=== PATIENT | female | born 1995 | race Two or more races ===

== ENCOUNTER 2016-09-08 18:11 | Emergency (ER) | payer SELFPAY ==
--- NOTE | 2016-09-08 18:40 | ER Document Report ---
ED Medical Screen (RME) - General Chief Complaint: Abdominal Pain Stated Complaint: STOMACH PAIN,VAGINAL IRRITATION Mode of Arrival: Ambulatory Information source: Patient Notes: Patient presents to the emergency department complaining of right upper quadrant abdominal pain for the past couple days. No complaints of vomiting and diarrhea. Patient speaks no Andorran. Translation done via chino on my phone for translation. I greeted and performed a rapid initial assessment of this patient. Comprehensive ED assessment and evaluation of the patient, analysis of test results and completion of the medical decision making process will be conducted by additional ED providers. TRAVEL OUTSIDE OF THE [place] IN LAST 30 DAYS: No - Related Data Allergies/Adverse Reactions: No Known Allergies Allergy (Verified 06/29/16 15:30) Past Medical History - Social History Chew tobacco use (# tins/day): No Frequency of alcohol use: None Drug Abuse: None Renal/ Medical History: Denies: Hx Peritoneal Dialysis - Immunizations Hx Diphtheria, Pertussis, Tetanus Vaccination: Yes Physical Exam - Vital signs Vitals: Temp Pulse Resp BP Pulse Ox 98.1 F 82 16 109/73 99 09/08/16 18:30 09/08/16 18:30 09/08/16 18:30 09/08/16 18:30 09/08/16 18:30 Course - Vital Signs Vital signs: Temp Pulse Resp BP Pulse Ox 98.1 F 82 16 109/73 99 09/08/16 18:30 09/08/16 18:30 09/08/16 18:30 09/08/16 18:30 09/08/16 18:30
[2016-09-08 19:38] LABS: ABSOLUTE EOSINOPHILS # (AUTO) 0.4 10^3/uL (0.0-0.6); ABSOLUTE LYMPHOCYTES (AUTO) 3.6 10^3/uL (0.5-4.7); ABSOLUTE NEUT (AUTO) 6.8 10^3/uL (1.7-8.2); BASOPHILS % (AUTO) 0.3 % (0-2); EOSINOPHILS % (AUTO) 3.3 % (0-6); HEMATOCRIT 39.3 % (36.0-47.0); HEMOGLOBIN 12.2 g/dL (12.0-15.5); HGB HCT DIFFERENCE -2.7; LYMPHOCYTES % (AUTO) 30.3 % (13-45); MEAN CORPUSCULAR VOLUME 87 fl (80-97); MONOCYTES % (AUTO) 8.2 % (3-13); RED BLOOD COUNT 4.52 10^6/uL (3.72-5.28); RED CELL DISTRIBUTION WIDTH 16.8 % (11.5-14.0); SEGMENTED NEUTROPHILS % (AUTO) 57.9 % (42-78); WHITE BLOOD COUNT 11.8 10^3/uL (4.0-10.5)
[2016-09-08 19:44] LABS: APPEARANCE,URINE SLIGHTLY-CLOUDY; BILIRUBIN,URINE NEGATIVE (NEGATIVE); GLUCOSE, URINE NEGATIVE (NEGATIVE); KETONES,URINE NEGATIVE (NEGATIVE); LEUKOCYTE ESTERASE,URINE LARGE (NEGATIVE); NITRITE,URINE NEGATIVE (NEGATIVE); PROTEIN,URINE NEGATIVE (NEGATIVE); URINE SPECIFIC GRAVITY 1.026; UROBILINOGEN,URINE NEGATIVE mg/dL (<2.0)
[2016-09-08 20:00] LABS: ALANINE AMINOTRANSFERASE 21 U/L (9-52); ALBUMIN 3.5 g/dL (3.5-5.0); ALKALINE PHOSPHATASE 115 U/L (38-126); ANION GAP 12 (5-19); ASPARTATE AMINO TRANSFERASE 18 U/L (14-36); BILIRUBIN,TOTAL 0.2 mg/dL (0.2-1.3); BLOOD UREA NITROGEN 13 mg/dL (7-20); CARBON DIOXIDE 24 mmol/L (22-30); CHLORIDE 107 mmol/L (98-107); CREATININE RESULT 0.71 mg/dL (0.52-1.25); GLUCOSE 82 mg/dL (75-110); LIPASE 73.6 U/L (23-300); POTASSIUM 4.1 mmol/L (3.6-5.0); SODIUM 143.3 mmol/L (137-145); TOTAL PROTEIN 6.6 g/dL (6.3-8.2)
--- NOTE | 2016-09-08 21:42 | ER Document Report ---
ED GI/ - General Chief Complaint: Abdominal Pain Stated Complaint: STOMACH PAIN,VAGINAL IRRITATION Mode of Arrival: Ambulatory Information source: Patient - VIA [employer] TRAVEL OUTSIDE OF THE [place] IN LAST 30 DAYS: No - HPI Patient complains to provider of: Abdominal pain, Vaginal discharge, Vaginal pain Onset: Other - 2 DAYS AGO Timing/Duration: Gradual, Intermittent Quality of pain: Other - "PAIN" Severity at maximum: Moderate Severity in ED: Almost gone Context: Other - RECENT Rx WITH METRONIDAZOLE. denies: Bad food, Lifting, Out of the country travel, , Recent trauma Location: RUQ, Vaginal Vaginal bleeding (Compared to normal period): None Menstrual period history: denies: Sexual history: Active Associated symptoms: Dysuria, Vaginal discharge. denies: Constipation, Diarrhea , Fever, Nausea, Urinary frequency, Urinary urgency, Vomiting Exacerbated by: Denies Relieved by: Denies Similar symptoms previously: Yes Recently seen / treated by doctor: Mian - KRISTIAN @ [facility] Notes: 09/09/16 00:13 Patient has prior history of gallstones, states present abdominal pain is similar. - Related Data Allergies/Adverse Reactions: No Known Allergies Allergy (Verified 06/29/16 15:30) Past Medical History - General Information source: Patient - Social History Smoking Status: Unknown if Ever Smoked Chew tobacco use (# tins/day): No Frequency of alcohol use: None Drug Abuse: None Lives with: Spouse/Significant other Family History: Reviewed & Not Pertinent Patient has suicidal ideation: No Patient has homicidal ideation: No - Past Medical History Cardiac Medical History: Reports: None Pulmonary Medical History: Reports: None EENT Medical History: Reports: None Neurological Medical History: Reports: None Endocrine Medical History: Reports: None. Denies: Hx Diabetes Mellitus Type 1, Hx Diabetes Mellitus Type 2 Renal/ Medical History: Reports: None Malignancy Medical History: Reports: None GI Medical History: Reports: Other - CHOLELITHIASIS Psychiatric Medical History: Reports: None Surgical Hx: Negative - Immunizations Hx Diphtheria, Pertussis, Tetanus Vaccination: Yes Review of Systems - Review of Systems Constitutional: No symptoms reported EENT: No symptoms reported Cardiovascular: No symptoms reported Respiratory: No symptoms reported Gastrointestinal: See HPI Genitourinary: See HPI Female Genitourinary: See HPI, Vaginal discharge. denies: Musculoskeletal: No symptoms reported Skin: No symptoms reported Neurological/Psychological: No symptoms reported Physical Exam - Vital signs Vitals: Temp Pulse Resp BP Pulse Ox 98.1 F 82 16 109/73 99 09/08/16 18:30 09/08/16 18:30 09/08/16 18:30 09/08/16 18:30 09/08/16 18:30 Interpretation: Normal. No: Tachycardic, Tachypneic, Febrile - General General appearance: Appears well, Alert In distress: None - HEENT Head: Normocephalic Eyes: Normal Conjunctiva: Normal Ears: Normal Nasal: Normal Mouth/Lips: Normal Mucous membranes: Normal - Respiratory Respiratory status: No respiratory distress - Cardiovascular Rhythm: Regular - Abdominal Inspection: Normal Distension: No distension Bowel sounds: Normal Tenderness: Tender - SLIGHT, RUQ Organomegaly: No organomegaly - Genitourinary External exam: Normal Speculum exam: Vaginal discharge - WHITE Vaginal bleeding: None Bimanuel exam: Normal. No: Cervical motion tender - Extremities General upper extremity: Normal inspection General lower extremity: Normal inspection - Neurological Neuro grossly intact: Yes Cognition: Normal Orientation: AAOx4 - Psychological Associated symptoms: Normal affect, Normal mood - Skin Skin Temperature: Warm Skin Moisture: Dry Skin Color: Normal Skin Turgor: Elastic Course - Vital Signs Vital signs: Temp Pulse Resp BP Pulse Ox 98.1 F 82 16 109/73 99 09/08/16 18:30 09/08/16 18:30 09/08/16 18:30 09/08/16 18:30 09/08/16 18:30 - Laboratory Result Diagrams: 09/08/16 18:50 09/08/16 18:50 Laboratory results interpreted by me: 09/08/16 09/08/16 18:50 18:50 WBC 11.8 H MCHC 31.0 L RDW 16.8 H Ur Leukocyte Esterase LARGE H Discharge - Discharge Clinical Impression: Candidal vaginitis, H/O cholelithiasis Condition: Stable Disposition: HOME, SELF-CARE Instructions: Abdominal Pain ([facility]), Vaginal Yeast Infection ([facility]), Gallbladder Disease ([facility]) Additional Instructions: BLAND DIET, AVOID GREASY OR SPICY FOODS. TAKE TYLENOL OR IBUPROFEN FOR PAIN, OR NORCO FOR MORE SEVERE PAIN. TAKE DIFLUCAN TOMORROW DIRECTED. FOLLOW UP WITH YOUR PRIMARY CARE PROVIDER, YOU MAY NEED REFERRAL TO GENERAL SURGERY FOR POSSIBLE GALLBLADDER REMOVAL. RETURN TO E.R. IF ANY NEW OR WORSENING SYMPTOMS. Prescriptions: Hydrocodone/Acetaminophen [[place] 5-325 mg Tablet] 1 tab PO Q4HP PRN #14 tablet PRN Reason: For Pain Fluconazole [Diflucan] 150 mg PO ONCE PRN #1 tablet PRN Reason:
[2016-09-09] MEDS ORDERED: HYDROCODONE/ACETAMINOPHEN 5-325 MG 6 TAB/DSPK PO PRN (00:40)
[2016-09-09 01:00] VITALS: BP 114/68
[2016-09-09 01:51] LABS: CHLAM PCR NOT DETECTED (NOT DETECT)
== END 2016-09-09 01:01 | disposition home or self-care (01) ==
LOC: ER 18:11
DX: B37.3 Candidiasis of vulva and vagina (principal); K80.80 Other cholelithiasis without obstruction; R10.2 Pelvic and perineal pain; R10.11 Right upper quadrant pain
CPT/HCPCS: 36415; 80053; 81001; 83690; 84703; 85025; 87086; 87210; 87491; 87591; 99284

== ENCOUNTER 2016-10-12 16:23 | Emergency (ER) | payer SELFPAY ==
--- NOTE | 2016-10-12 16:46 | ER Document Report ---
ED Medical Screen (RME) - General Chief Complaint: Upper Abdominal Pain Stated Complaint: BODY PAIN Notes: patient is a 21 year old female p/w 2 days of RUQ pain with fever, chills, nausea and with diarrhea. has known gall stones I have greeted and performed a rapid initial assessment of this patient. A comprehensive ED assessment and evaluation of the patient, analysis of test results and completion of the medical decision making process will be conducted by additional ED providers. TRAVEL OUTSIDE OF THE [place] IN LAST 30 DAYS: No - Related Data Allergies/Adverse Reactions: No Known Allergies Allergy (Verified 10/12/16 16:37) Past Medical History - Social History Chew tobacco use (# tins/day): No Frequency of alcohol use: None Drug Abuse: None Endocrine Medical History: Denies: Hx Diabetes Mellitus Type 1, Hx Diabetes Mellitus Type 2 Renal/ Medical History: Denies: Hx Peritoneal Dialysis - Immunizations Hx Diphtheria, Pertussis, Tetanus Vaccination: Yes
[2016-10-12] MEDS ORDERED: ONDANSETRON 4 MG TAB.RAPDIS PO ONE (16:47)
[2016-10-12 17:24] LABS: ABSOLUTE LYMPHOCYTES (AUTO) 0.6 10^3/uL (0.5-4.7); ABSOLUTE MONOCYTES (AUTO) 0.9 10^3/uL (0.1-1.4); ABSOLUTE NEUT (AUTO) 4.3 10^3/uL (1.7-8.2); BASOPHILS % (AUTO) 0.3 % (0-2); EOSINOPHILS % (AUTO) 0.6 % (0-6); HEMATOCRIT 40.8 % (36.0-47.0); HEMOGLOBIN 13.5 g/dL (12.0-15.5); HGB HCT DIFFERENCE -0.3; LYMPHOCYTES % (AUTO) 9.6 % (13-45); MEAN CORPUSCULAR HEMOGLOBIN 28.4 pg (27.0-33.4); MEAN CORPUSCULAR VOLUME 86 fl (80-97); MONOCYTES % (AUTO) 16.1 % (3-13); RED BLOOD COUNT 4.74 10^6/uL (3.72-5.28); RED CELL DISTRIBUTION WIDTH 14.6 % (11.5-14.0); SEGMENTED NEUTROPHILS % (AUTO) 73.4 % (42-78); WHITE BLOOD COUNT 5.8 10^3/uL (4.0-10.5)
[2016-10-12 17:39] LABS: APPEARANCE,URINE SLIGHTLY-CLOUDY; BILIRUBIN,URINE NEGATIVE (NEGATIVE); GLUCOSE, URINE NEGATIVE (NEGATIVE); KETONES,URINE NEGATIVE (NEGATIVE); LEUKOCYTE ESTERASE,URINE NEGATIVE (NEGATIVE); NITRITE,URINE NEGATIVE (NEGATIVE); PROTEIN,URINE NEGATIVE (NEGATIVE); UROBILINOGEN,URINE NEGATIVE mg/dL (<2.0)
[2016-10-12 17:43] LABS: ALANINE AMINOTRANSFERASE 272 U/L (9-52); ALBUMIN 3.7 g/dL (3.5-5.0); ALKALINE PHOSPHATASE 177 U/L (38-126); ANION GAP 11 (5-19); ASPARTATE AMINO TRANSFERASE 481 U/L (14-36); BILIRUBIN,TOTAL 0.4 mg/dL (0.2-1.3); BLOOD UREA NITROGEN 14 mg/dL (7-20); CALCIUM 9.6 mg/dL (8.4-10.2); CARBON DIOXIDE 23 mmol/L (22-30); CHLORIDE 106 mmol/L (98-107); CREATININE RESULT 0.63 mg/dL (0.52-1.25); GLUCOSE 75 mg/dL (75-110); LIPASE 65.2 U/L (23-300); POTASSIUM 4.3 mmol/L (3.6-5.0); SODIUM 139.9 mmol/L (137-145); TOTAL PROTEIN 7.4 g/dL (6.3-8.2)
[2016-10-12] MEDS ORDERED: ONDANSETRON HCL INJ/PF 4 MG/2 ML SDV IV ONE (21:53)
[2016-10-12] MEDS ORDERED: NORMAL SALINE 1000 ML 1,000 ML IV PRN (21:53)
[2016-10-12] MEDS ORDERED: KETOROLAC TROMETHAMINE INJ/PF 30 MG/1 ML SDV IV ONE (21:53)
--- NOTE | 2016-10-12 21:55 | ER Document Report ---
ED GI/ - General Chief Complaint: Upper Abdominal Pain Stated Complaint: BODY PAIN Time seen by provider: 21:54 Mode of Arrival: Ambulatory Information source: Patient TRAVEL OUTSIDE OF THE [place] IN LAST 30 DAYS: No - HPI Patient complains to provider of: Abdominal pain, Diarrhea Onset: Yesterday Timing/Duration: Sudden, Gradual Quality of pain: Achy Severity at maximum: Moderate Severity in ED: Moderate Pain Level: 3 Location: RUQ Vaginal bleeding (Compared to normal period): None Associated symptoms: Diarrhea, Nausea Exacerbated by: Denies Relieved by: Denies Similar symptoms previously: Yes Recently seen / treated by doctor: No Notes: 10/12/16 21:54 Patient is a 21-year-old female presenting to the emergency room complaining of diarrhea, nausea, right upper quadrant pain this started yesterday, body aches and headaches as well, no dysuria, no fever, no sick contacts, she reports a history of gallstones in the past - Related Data Allergies/Adverse Reactions: No Known Allergies Allergy (Verified 10/12/16 16:37) Past Medical History - General Information source: Patient - Social History Smoking Status: Never Smoker Chew tobacco use (# tins/day): No Frequency of alcohol use: None Drug Abuse: None Family History: Reviewed & Not Pertinent Patient has suicidal ideation: No Patient has homicidal ideation: No Endocrine Medical History: Denies: Hx Diabetes Mellitus Type 1, Hx Diabetes Mellitus Type 2 Renal/ Medical History: Denies: Hx Peritoneal Dialysis Surgical Hx: Negative - Immunizations Hx Diphtheria, Pertussis, Tetanus Vaccination: Yes Review of Systems - Review of Systems Constitutional: Chills EENT: No symptoms reported Cardiovascular: No symptoms reported Respiratory: No symptoms reported Gastrointestinal: See HPI Genitourinary: No symptoms reported Female Genitourinary: No symptoms reported Musculoskeletal: See HPI Skin: No symptoms reported Hematologic/Lymphatic: No symptoms reported Neurological/Psychological: Headaches -: Yes All other systems reviewed and negative Physical Exam - Vital signs Interpretation: Normal - General General appearance: Appears well, Alert - HEENT Head: Normocephalic, Atraumatic Eyes: Normal Pupils: PERRL - Respiratory Respiratory status: No respiratory distress Chest status: Nontender Breath sounds: Normal Chest palpation: Normal - Cardiovascular Rhythm: Regular Heart sounds: Normal auscultation Murmur: No - Abdominal Inspection: Normal Distension: No distension Bowel sounds: Normal Tenderness: Tender - Right upper quadrant Organomegaly: No organomegaly - Back Back: Normal, Nontender - Extremities General upper extremity: Normal inspection, Nontender, Normal color, Normal ROM , Normal temperature General lower extremity: Normal inspection, Nontender, Normal color, Normal ROM , Normal temperature, Normal weight bearing. No: Lj's sign - Neurological Neuro grossly intact: Yes Cognition: Normal Orientation: AAOx4 [place] Coma Scale Eye Opening: Spontaneous [place] Coma Scale Verbal: Oriented [place] Coma Scale Motor: Obeys Commands [place] Coma Scale Total: 15 Speech: Normal Motor strength normal: LUE, RUE, LLE, RLE Sensory: Normal - Psychological Associated symptoms: Normal affect, Normal mood - Skin Skin Temperature: Warm Skin Moisture: Dry Skin Color: Normal Course - Re-evaluation Re-evalutation: 10/13/16 00:47 Patient resting comfortably, tolerating by mouth intake, reports her headache is still bothering her but improved, lab and imaging findings were discussed with patient at bedside, she was advised to follow-up with her primary care provider in the next 2-3 days or return if symptoms worsen, patient acknowledges understanding and agreement with this plan - Laboratory Result Diagrams: 10/12/16 16:50 10/12/16 16:50 Laboratory results interpreted by me: 10/12/16 10/12/16 10/12/16 16:50 16:50 16:50 RDW 14.6 H Lymphocytes % 9.6 L Monocytes % 16.1 H AST 481 H ALT 272 H Alkaline Phosphatase 177 H Urine Ascorbic Acid 20 H - Diagnostic Test Radiology reviewed: Image reviewed, Reports reviewed Discharge - Discharge Clinical Impression: Viral illness, Elevated liver enzymes Headache Qualifiers: Headache type: unspecified Headache chronicity pattern: acute headache Intractability: not intractable Qualified Code(s): R51 - Headache Condition: Stable Disposition: HOME, SELF-CARE Instructions: Acetaminophen, Viral Syndrome ([facility]), Liver Function Abnormality ( [facility]) Additional Instructions: Drink plenty of fluids. Follow up with your primary care provider in one to 2 days. Return to the emergency room if symptoms worsen or any additional concerns.
[2016-10-13] MEDS ORDERED: ONDANSETRON ODT 4 MG TAB (6 TAB/DSPK) PO PRN (00:47)
[2016-10-13] MEDS ORDERED: HYDROCODONE/ACETAMINOPHEN 5-325 MG 6 TAB/DSPK PO PRN (00:47)
[2016-10-13 01:14] VITALS: BP 117/69
== END 2016-10-13 01:14 | disposition home or self-care (01) ==
LOC: ER 16:23
DX: B34.9 Viral infection, unspecified (principal); R74.8 Abnormal levels of other serum enzymes; R51 Headache; K80.80 Other cholelithiasis without obstruction; R10.11 Right upper quadrant pain; R19.7 Diarrhea, unspecified; R11.0 Nausea; R68.83 Chills (without fever); E11.9 Type 2 diabetes mellitus without complications
CPT/HCPCS: 99284; 96361; 96374; 96375; 36415; 83690; 85025; 81025; 80053; 81001; 80074; 87804; 76705; S0119; J1885; J2405; J7030

== ENCOUNTER 2016-11-11 18:47 | Emergency (ER) | payer SELFPAY ==
--- NOTE | 2016-11-11 19:22 | ER Document Report ---
ED Medical Screen (RME) - General Stated Complaint: URINARY PROBLEM Notes: Patient is a 21 year old female presents emergency Department complaining of urinary symptoms. Patient's primary language is [place]ican. one week, denies hematuria admits to odor, itching and vaginal discharge without odor. pyuria, frequency. has had these symptoms 3 times since she had her baby 4 months. admits to middle back pain. I have greeted and performed a rapid initial assessment of this patient. A comprehensive ED assessment and evaluation of the patient, analysis of test results and completion of the medical decision making process will be conducted by additional ED providers. TRAVEL OUTSIDE OF THE [place] IN LAST 30 DAYS: No - Related Data Allergies/Adverse Reactions: No Known Allergies Allergy (Verified 10/12/16 16:37) Past Medical History Endocrine Medical History: Denies: Hx Diabetes Mellitus Type 1, Hx Diabetes Mellitus Type 2 Renal/ Medical History: Denies: Hx Peritoneal Dialysis - Immunizations Hx Diphtheria, Pertussis, Tetanus Vaccination: Yes Physical Exam - Vital signs Vitals: Temp Pulse Resp BP Pulse Ox 98.8 F 98 16 130/74 H 98 11/11/16 19:01 11/11/16 19:01 11/11/16 19:01 11/11/16 19:01 11/11/16 19:01 Course - Vital Signs Vital signs: Temp Pulse Resp BP Pulse Ox 98.8 F 98 16 130/74 H 98 11/11/16 19:01 11/11/16 19:01 11/11/16 19:01 11/11/16 19:01 11/11/16 19:01
[2016-11-11 20:49] LABS: BILIRUBIN,URINE NEGATIVE (NEGATIVE); GLUCOSE, URINE NEGATIVE (NEGATIVE); KETONES,URINE NEGATIVE (NEGATIVE); LEUKOCYTE ESTERASE,URINE LARGE (NEGATIVE); NITRITE,URINE NEGATIVE (NEGATIVE); PROTEIN,URINE NEGATIVE (NEGATIVE); URINE SPECIFIC GRAVITY 1.029; UROBILINOGEN,URINE NEGATIVE mg/dL (<2.0)
[2016-11-11 20:50] LABS: APPEARANCE,URINE SLIGHTLY-CLOUDY
--- NOTE | 2016-11-11 21:30 | ER Document Report ---
HPI - HPI Patient complains to provider of: vaginal discharge, pain with void Onset: Last week Onset/Duration: Persistent Quality of pain: Burning Severity: Moderate Pain Level: 3 Context: Patient presents to the emergency department with complaints of urinary infection. She reports pain, burn with void for one-week. She also reports vaginal discharge with a bad smell. Patient reports history of UTI. She reports she had a yeast infection afterwards when treated with antibiotics. She denies fever vomiting diarrhea. Patient speaks Nigerien. MARTTI used for interpretation. Pt reports sexually active with one partner. Denies STD, reports she is not worried about that. Associated Symptoms: None Exacerbated by: Denies Relieved by: Denies Similar symptoms previously: Yes Recently seen / treated by doctor: No - CARDIOVASCULAR Cardiovascular: DENIES: Chest pain - REPRODUCTIVE Reproductive: DENIES: : - DERM Skin Color: Normal, [place] Past Medical History - General Information source: Patient Last Menstrual Period: sep 27 - Social History Smoking Status: Never Smoker Chew tobacco use (# tins/day): No Frequency of alcohol use: None Drug Abuse: None Lives with: Family Family History: Reviewed & Not Pertinent Patient has suicidal ideation: No Patient has homicidal ideation: No Endocrine Medical History: Denies: Hx Diabetes Mellitus Type 1, Hx Diabetes Mellitus Type 2 Renal/ Medical History: Reports: Other - uti. Denies: Hx Peritoneal Dialysis Surgical Hx: Negative - Immunizations Hx Diphtheria, Pertussis, Tetanus Vaccination: Yes Vertical Provider Document - CONSTITUTIONAL Agree With Documented VS: Yes Exam Limitations: No Limitations General Appearance: WD/WN, No Apparent Distress - INFECTION CONTROL TRAVEL OUTSIDE OF THE [place] IN LAST 30 DAYS: No - HEENT HEENT: Atraumatic, Normocephalic - NECK Neck: Normal Inspection, Supple - RESPIRATORY Respiratory: Breath Sounds Normal, No Respiratory Distress O2 Sat by Pulse Oximetry: 98 - CARDIOVASCULAR Cardiovascular: Regular Rate - GI/ABDOMEN Gastrointestinal: Abdomen Soft, Abdomen Non-Tender - REPRODUCTIVE Female Genitalia: Normal Inspection - BACK Back: Normal Inspection. negative: CVA Tenderness-Right, CVA Tenderness-Left - MUSCULOSKELETAL/EXTREMETIES Musculoskeletal/Extremeties: DHEERAJ LEVIN - NEURO Level of Consciousness: Awake, Alert, Appropriate Motor/Sensory: No Motor Deficit - DERM Integumentary: Warm, Dry Course - Re-evaluation Re-evalutation: 11/11/16 22:36 UA with positive leukocytes, 59 WBC's trace bacteria. Will be treated for UTI. 11/11/16 23:01 pt updated on UTI, macrobid, diflucan. Patient was instructed to contact the ED if the prescription cost too much. They will take it to [facility]. - Vital Signs Vital signs: Temp Pulse Resp BP Pulse Ox 98.8 F 98 16 130/74 H 98 11/11/16 19:13 11/11/16 19:13 11/11/16 19:13 11/11/16 19:13 11/11/16 19:13 - Laboratory Laboratory results interpreted by me: 11/11/16 20:15 Ur Leukocyte Esterase LARGE H Procedures - Pelvic Exam Pelvic exam Cultures obtained: Yes Wet prep obtained: Yes Herpes culture obtained: No POC sent to lab: No Foreign body removed: No Bimanual exam performed: Yes Witnessed by: glenda MANUEL Discharge - Discharge Clinical Impression: Elevated blood pressure reading UTI (urinary tract infection) Qualifiers: Urinary tract infection type: site unspecified Hematuria presence: without hematuria Qualified Code(s): N39.0 - Urinary tract infection, site not specified Condition: Stable Disposition: HOME, SELF-CARE Instructions: Nitrofurantoin ([facility]), [facility] Department, Urinary Tract Infection ([facility]), Fluconazole ([facility]) Additional Instructions: *You have been evaluated for pain while voiding, UTI, Vaginal discharge, history of yeast infection after antibiotics *Take medication as prescribed *Push fluids *Follow up with the health department in one week for recheck *Plan recheck of your urine *Return to ED for worsening condition, changes, needs Monitor your blood pressure. Your blood pressure was elevated today. This may be because you were anxious, in pain or because you need medication. It is important to follow up with your primary care provider for full evaluation. Prescriptions: Fluconazole [Diflucan] 150 mg PO ONCE PRN #1 tablet PRN Reason: Nitrofurantoin/Nitrofuran Mac [Macrobid 100 mg Capsule] 100 mg PO BID #10 capsule Forms: Elevated Blood Pressure Print Language: Nigerien
[2016-11-11] MEDS ORDERED: SULFAMETHOXAZOLE/TRIMETHOPRIM 800-160 MG TABLET PO ONE (22:44)
[2016-11-11] MEDS ORDERED: NITROFURANTOIN MONOHYD/M-CRYST 100 MG CAPSULE PO ONE (22:54)
[2016-11-11 23:13] VITALS: BP 120/72
[2016-11-12 00:05] LABS: CHLAM PCR NOT DETECTED (NOT DETECT)
== END 2016-11-11 23:14 | disposition home or self-care (01) ==
LOC: ER 18:47
DX: N39.0 Urinary tract infection, site not specified (principal); R03.0 Elevated blood-pressure reading, without diagnosis of hypertension
CPT/HCPCS: 99283; 87086; 87210; 81025; 81001; 87491; 87591; J8499

== ENCOUNTER → 2016-12-18 | Outpatient (CLI) | payer OTHER | LOC: EDBD 13:00 → RAD 13:11 → MERGE 13:11 | DX: K81.9 Cholecystitis, unspecified (principal) | CPT/HCPCS: 78227; A9537; Q9969; J2805 ==

== ENCOUNTER → 2017-01-02 | Outpatient (CLI) | payer OTHER ==
[2017-01-02 11:00] LABS: ALANINE AMINOTRANSFERASE 27 U/L (9-52); ALBUMIN 3.8 g/dL (3.5-5.0); ALKALINE PHOSPHATASE 141 U/L (38-126); ANION GAP 10 (5-19); ASPARTATE AMINO TRANSFERASE 14 U/L (14-36); BILIRUBIN,DIRECT 0.3 mg/dL (0.0-0.4); BILIRUBIN,TOTAL 0.4 mg/dL (0.2-1.3); BLOOD UREA NITROGEN 14 mg/dL (7-20); CALCIUM 9.3 mg/dL (8.4-10.2); CARBON DIOXIDE 22 mmol/L (22-30); CHLORIDE 109 mmol/L (98-107); CREATININE RESULT 0.68 mg/dL (0.52-1.25); GLUCOSE 104 mg/dL (75-110); LIPASE 106.9 U/L (23-300); POTASSIUM 4.6 mmol/L (3.6-5.0); SODIUM 140.6 mmol/L (137-145); TOTAL PROTEIN 7.2 g/dL (6.3-8.2)
== END ==
LOC: CCC 09:50
DX: K81.9 Cholecystitis, unspecified (principal); R79.89 Other specified abnormal findings of blood chemistry
CPT/HCPCS: 36415; 80053; 83036; 83690

== ENCOUNTER 2017-03-25 00:16 | Emergency (ER) | payer SELFPAY ==
[2017-03-25] MEDS ORDERED: LIDOCAINE 2% VISCOUS SOLN 20 ML UDCUP PO ONE (01:21)
[2017-03-25] MEDS ORDERED: CLINDAMYCIN HCL 150 MG CAPSULE PO ONE (01:21)
--- NOTE | 2017-03-25 01:28 | ER Document Report ---
ED Oral Problem - General Chief Complaint: Toothache Stated Complaint: MOUTH DISCOMFORT/FOOT PAIN Time Seen by Provider: 03/25/17 01:21 Mode of Arrival: Ambulatory Information source: Patient Notes: 21-year-old female presented to ED for right lower jaw pain as well as right great toe pain. She states she cut her toenails long. She also has pain in her right lower wisdom tooth. She states the pain in her mouth is been for several days and while is the toe pain. TRAVEL OUTSIDE OF THE [place] IN LAST 30 DAYS: No - HPI Patient complains to provider of: Toothache, Other - Right toe pain Onset: Other - Several days Onset: Gradual Quality of pain: Sharp, Throbbing Severity: Moderate Pain Level: 4 Associated symptoms: Jaw pain, Toothache, Other - right great toe pain from where she cut her nail to short Worsened by: Cold Relieved by: Nothing Similar symptoms previously: Yes Recently seen / treated by doctor/dentist: No - Related Data Allergies/Adverse Reactions: No Known Allergies Allergy (Verified 11/11/16 19:22) Past Medical History - General Information source: Patient - Social History Smoking Status: Never Smoker Cigarette use (# per day): No Chew tobacco use (# tins/day): No Smoking Education Provided: No Frequency of alcohol use: None Drug Abuse: None Lives with: Family Family History: DM, Hypertension, Malignancy Patient has suicidal ideation: No Patient has homicidal ideation: No - Past Medical History Cardiac Medical History: Reports: None Pulmonary Medical History: Reports: None EENT Medical History: Reports: None Neurological Medical History: Reports: None Endocrine Medical History: Reports: None Renal/ Medical History: Reports: None Malignancy Medical History: Reports: None GI Medical History: Reports: None Musculoskeltal Medical History: Reports None Skin Medical History: Reports None Psychiatric Medical History: Reports: None Traumatic Medical History: Reports: None Infectious Medical History: Reports: None Surgical Hx: Negative Past Surgical History: Reports: None - Immunizations Immunizations up to date: Yes Hx Diphtheria, Pertussis, Tetanus Vaccination: Yes Review of Systems - Review of Systems Constitutional: No symptoms reported EENT: Dental problem - right wisdom tooth appears impacted with swelling and redness to the gums Cardiovascular: No symptoms reported Respiratory: No symptoms reported Gastrointestinal: No symptoms reported Genitourinary: No symptoms reported Female Genitourinary: No symptoms reported Musculoskeletal: No symptoms reported Skin: Other - swelling around the right great toe nail no redness or drainage Hematologic/Lymphatic: No symptoms reported Neurological/Psychological: No symptoms reported -: Yes All other systems reviewed and negative Physical Exam - Vital signs Vitals: Temp Pulse Resp BP Pulse Ox 98.2 F 87 18 142/71 H 99 03/25/17 00:18 03/25/17 00:18 03/25/17 00:18 03/25/17 00:18 03/25/17 00:18 Interpretation: Normal - General General appearance: Appears well, Alert - HEENT Head: Normocephalic, Atraumatic Eyes: Normal Pupils: PERRL Ears: Normal External canal: Normal Tympanic membrane: Normal Sinus: Normal Nasal: Normal Mouth/Lips: Normal Mucous membranes: Normal Teeth diagram: 1 - lower wisdom tooth tender partially through the gum with swellng and redness to the gum Pharynx: Normal Neck: Normal - Respiratory Respiratory status: No respiratory distress Chest status: Nontender Breath sounds: Normal Chest palpation: Normal - Cardiovascular Rhythm: Regular Heart sounds: Normal auscultation Murmur: No - Abdominal Inspection: Normal Distension: No distension Bowel sounds: Normal Tenderness: Nontender Organomegaly: No organomegaly - Back Back: Normal, Nontender - Extremities General upper extremity: Normal inspection, Nontender, Normal color, Normal ROM , Normal temperature General lower extremity: Normal inspection, Nontender, Normal color, Normal ROM , Normal temperature, Normal weight bearing. No: Lj's sign - Neurological Neuro grossly intact: Yes Cognition: Normal Orientation: AAOx4 [place] Coma Scale Eye Opening: Spontaneous [place] Coma Scale Verbal: Oriented [place] Coma Scale Motor: Obeys Commands [place] Coma Scale Total: 15 Speech: Normal Motor strength normal: LUE, RUE, LLE, RLE Sensory: Normal - Psychological Associated symptoms: Normal affect, Normal mood - Skin Skin Temperature: Warm Skin Moisture: Dry Skin Color: Normal Location of irregularity: Extremities - right great toe around the nail where the patient cut the nail too close Irregularity with: Swelling, Tenderness Course - Re-evaluation Re-evalutation: 03/25/17 06:47 patient treated with clindamycin and instructed on use of viscous lidocaine for the pain. patient to follow up with podiatry and dentist for further treatment - Vital Signs Vital signs: Temp Pulse Resp BP Pulse Ox 98 F 91 18 112/61 97 03/25/17 02:15 03/25/17 02:15 03/25/17 02:15 03/25/17 02:15 03/25/17 02:15 Discharge - Discharge Clinical Impression: Dental pain due to impacted wisdom tooth, Ingrown right greater toenail Condition: Stable Disposition: HOME, SELF-CARE Additional Instructions: TOOTHACHE: Your pain is due to dental decay. The tooth must be repaired in order for you to feel better. You will, therefore, be referred to a dentist. We do not have dentists on the staff at [facility]. Severe swelling or drainage around a tooth usually means a dental abscess. This also requires evaluation and treatment by the dentist, but antibiotics may be prescribed while awaiting dental treatment. You should be rechecked immediately if you develop major swelling of the face, increasing pain, a lump in the jaw or gums, headache, difficulty swallowing, or fever. Ingrown Nail You have an ingrown nail. An ingrown nail develops when the tissues near the nail are pushed up over the nail. Irritation develops and infection follows. An ingrown nail can result from poorly fitting shoes, improper cutting of the nail, or minor injuries. Once the tissues at the edge of the nail swell, the problem can become chronic. Emergency treatment is usually removal of the portion of the nail that has become ingrown. This is followed by hot soaks three to four times a day. Antibiotics may be necessary if infection is present. After the toe heals, make certain there is no pressure on the area, either from shoes or another toe. Trim the toenails straight across, not curved back into the corners. If ingrown nails recur, an operation to remove excess tissue near the nail, or narrowing of the nail, may be necessary. Call the doctor or return if swelling increases, or red streaks, swelling, or swollen glands are found. CLINDAMYCIN: You have been given a prescription for the antibiotic clindamycin. It is often prescribed for infections in the mouth, such as dental infections or abscesses, and for skin infections due to MRSA. It's important that you take all the medication, unless instructed otherwise by your physician. Failure to complete the entire course can result in relapse of your condition. Common side effects of antibiotics include nausea, intestinal cramping, or diarrhea. Women may develop vaginal yeast infections, and babies can get yeast (thrush) in the mouth following the use of antibiotics. Contact your physician if you develop significant side effects from this medication. Allergy to this antibiotic can result in hives, wheezing, faintness, or itching. If symptoms of allergy occur, stop the medication and call the doctor. Epsom Salt Soaks Soak the wound area in a container of warm epsom salt water. If you can't get the wound area into a bucket or alexis, use a folded towel soaked in the epsom salt solution and apply to the area. Use clean hot tap water (about the temperature of a very warm bath), mixing in about one (1) teaspoon for every pint of water. Two gallon --> 16 teaspoons Epsom Salts One gallon --> 8 teaspoons Epsom Salts Two quarts --> 4 teaspoons Epsom Salts One quart --> 2 teaspoons Epsom Salts Soak the wound for about 20 minutes while gently moving it around in the water. Repeat this four (4) times a day. FOLLOW-UP CARE: You have been referred for follow-up care to the dentists listed below. Call the dentists office for an appointment as you were instructed or within the next two days. If you experience worsening or a significant change in your symptoms, notify the physician immediately or return to the Emergency Department at any time for re-evaluation. [facility] [address] [place], [place] Sunday mornings, by appointment [facility] [address] [place] [address] [facility] [address] [facility].C. [facility] [address] [facility]C. [employer] [facility] [email or web address] [facility] [address] [place] [address] Sunday- 8:00am to 5:00 pm Will see patients from other [facility]. Charges based on income and family size and accepts Medicare, Medicaid, and Insurances Will pull molars [facility] Student [facility]ics [facility] [id number] Hours of Operation 8:00 am - 4:30 pm weekdays The following dental offices accept Medicaid: [facility] Dr. Vuong Dr. Dumas Dr. Hartmann Dr. Jones Casey Reynolds, Nicole, and [place] oral surgery Dr. Gonzalez ([place]) Dr. Helm ([place]) [facility] Drs. Allen and Jesse ([place]) Dr. Obrien ([place]) [facility] Dr. Mulelr ([place]) Drs. Reyes and ([place]) Medicaid Care Line Prescriptions: Clindamycin HCl 300 mg PO QID #28 capsule Forms: Elevated Blood Pressure Referrals: ALEXANDRIA MEI DPM [ACTIVE STAFF] - Follow up as needed
[2017-03-25 03:05] VITALS: BP 112/61
== END 2017-03-25 02:20 | disposition home or self-care (01) ==
LOC: ER 00:16
DX: K01.1 Impacted teeth (principal); L60.0 Ingrowing nail; M79.674 Pain in right toe(s); K08.89 Other specified disorders of teeth and supporting structures
CPT/HCPCS: 99283; J3490

== ENCOUNTER 2017-04-15 23:18 | Emergency (ER) | payer SELFPAY ==
[2017-04-15 23:52] VITALS: BP 143/82
[2017-04-16] MEDS ORDERED: MORPHINE SULFATE 10 MG/ML INJ IV ONE (03:04)
[2017-04-16] MEDS ORDERED: NORMAL SALINE 1000 ML 1,000 ML IV ONE (03:04)
[2017-04-16] MEDS ORDERED: DIPHENHYDRAMINE HCL 50 MG/ML VIAL IM ONE (03:41)
[2017-04-16] MEDS ORDERED: METOCLOPRAMIDE HCL INJ/PF 10 MG/2 ML SDV IM ONE (03:41)
--- NOTE | 2017-04-16 03:44 | ER Document Report ---
ED General - General Chief Complaint: Numbness all over Stated Complaint: TINGLING IN FACIAL AREA Time Seen by Provider: 04/16/17 03:00 Notes: Patient's history was obtained using a [employer] japanese interpreter. T[employer] Machine Operator Automatic ID #[id number]. Patient is a 21-year-old female with a history of recurrent headaches. She says she has had recurrent headaches that she was a little girl. She is over last 4 days she has had 1 of her typical headaches. Headache is not been severe. Says headache is mild. She says what is new about this headache is that she has a tingling sensation over both sides of her face and all her 4 of her extremities. No associated weakness. No fevers. No trauma. No vomiting. No other complaints at this time. She does not see a primary care doctor. She takes control. TRAVEL OUTSIDE OF THE [place] IN LAST 30 DAYS: No - Related Data Allergies/Adverse Reactions: No Known Allergies Allergy (Verified 11/11/16 19:22) Past Medical History - Social History Smoking Status: Unknown if Ever Smoked Frequency of alcohol use: None Drug Abuse: None Family History: DM, Hypertension, Malignancy Endocrine Medical History: Denies: Hx Diabetes Mellitus Type 1, Hx Diabetes Mellitus Type 2 Renal/ Medical History: Denies: Hx Peritoneal Dialysis - Immunizations Immunizations up to date: Yes Hx Diphtheria, Pertussis, Tetanus Vaccination: Yes Review of Systems - Review of Systems Notes: My Normal Review Basic REVIEW OF SYSTEMS: CONSTITUTIONAL : Denies fever, chills, or sweats. Denies recent illness. EENT: Denies eye, ear, throat, or mouth pain or symptoms. Denies nasal or sinus congestion. RESPIRATORY: Denies cough, cold, or chest congestion. Denies shortness of breath, difficulty breathing, or wheezing. GASTROINTESTINAL: Denies nausea, vomiting, or diarrhea. MUSCULOSKELETAL: Denies neck or back pain or joint pain or swelling. SKIN: Denies rash or skin lesions. NEUROLOGICAL: Denies altered mental status or loss of consciousness. Has a headache. Denies weakness or paralysis or loss of use of either side. Denies problems with gait or speech. Tingling type sensation in all extremities. ALL OTHER SYSTEMS REVIEWED AND NEGATIVE. Physical Exam - Vital signs Vitals: Temp Pulse Resp BP Pulse Ox 98.5 F 96 18 143/82 H 97 04/15/17 23:47 04/15/17 23:47 04/15/17 23:47 04/15/17 23:47 04/15/17 23:47 - Notes Notes: General Appearance: Well nourished, alert, cooperative, no acute distress, no obvious discomfort. Well-appearing. Vitals: reviewed, See vital signs table. Head: no swelling or tenderness to the head Eyes: PERRL, EOMI, Conjuctiva clear Mouth: No decreasd moisture Lungs: No wheezing, No rales, No rhonci, No accessory muscle use, good air exchange bilaterally. Heart: Normal rate, Regular rythm, No murmur, no rub Extremities: strength 5/5 in all extremities, good pulses in all extremities, no swelling or tenderness in the extremities, no edema. Skin: warm, dry, appropriate color, no rash Neuro: speech clear, oriented x 3, normal affect, responds appropriately to questions. Cranial nerves II through XII are intact. Distal sensation intact. Patient moves all extremities without difficulty. Normal Romberg. Normal gait. Course - Re-evaluation Re-evalutation: 04/16/17 07:[address] was negative. Head CT was obtained patient's had prolonged headaches since she was a child and now was started have some of the numbness and tingling in both sides her face and arms. He want to make sure is no evidence of tumor mass. This was negative. I did use [employer] bilingual interpreter services to go the patient's findings with her and also discussed plan for treatment and follow-up. The Benadryl and Reglan did not fully relieve her headache however it did take away all the numbness type feeling she had. I am not concerned with any type of strokelike symptoms being her symptoms are bilaterally and usually relieved with medication. I suspect she probably has some form of complex migraine. I think MS is unlikely being that she has been having these headaches as child. She has no associated weakness with numbness either. She has no ocular symptoms. I still refer her to her neurologist. I informed the importance of following up with a neurologist. I will write prescriptions for Benadryl and Reglan to take for if she gets recurrent headaches. Patient encouraged to return to ER if she is worsening of her symptoms or feels unwell. Patient agrees with plan will be discharged home. Dictation of this chart was performed using voice recognition software; therefore, there may be some unintended grammatical errors. - Vital Signs Vital signs: Temp Pulse Resp BP Pulse Ox 98.5 F 96 18 143/82 H 97 04/15/17 23:47 04/15/17 23:47 04/15/17 23:47 04/15/17 23:47 04/15/17 23:47 Discharge - Discharge Clinical Impression: Paresthesia Headache Qualifiers: Headache type: unspecified Headache chronicity pattern: episodic headache Intractability: not intractable Qualified Code(s): R51 - Headache Condition: Good Disposition: HOME, SELF-CARE Additional Instructions: Please take the benadryl with the reglan for a headache. This medication neri make you sleepy so do not drive after taking it. Please return to the ER immediately if you have worsening headaches, new weakness or numbness, or if you feel unwell. Please call Dr. Garcia, the neurologist, for a follow up appointment. Prescriptions: Diphenhydramine HCl [Benadryl] 25 mg PO Q6 PRN #20 capsule PRN Reason: Metoclopramide HCl [Reglan 10 mg Tablet] 1 tab PO ASDIR PRN #25 tablet PRN Reason: Referrals: MOLLY GARCIA MD [EMERITUS] - Follow up in 3-5 days
--- NOTE | 2017-04-16 04:05 | RADIOLOGY REPORT (SQ) ---
EXAM DESCRIPTION: CT HEAD WITHOUT COMPLETED DATE/TIME: 04/16/2017 3:53 am REASON FOR STUDY: headaceh, paresthesias COMPARISON: None. TECHNIQUE: Axial images acquired through the brain without intravenous contrast. Images reviewed wi th bone, brain and subdural windows. Images stored on PACS. All CT scanners at this facility use dose modulation, iterative reconstruction, and/or weight based d osing when appropriate to reduce radiation dose to as low as reasonably achievable (ALARA). [facility]: Dose Right [facility]: CareDose [facility]: Dose Right [facility]: Teradose 4D [facility]: Smart AorTx RADIATION DOSE: Up-to-date CT equipment and radiation dose reduction techniques were employed. CTDIv ol: 64.6 mGy. DLP: 1163 mGy-cm. mGy. LIMITATIONS: None. FINDINGS: VENTRICLES: Normal size and contour. CEREBRUM: No masses. No hemorrhage. No midline shift. Normal house/white matter differentiation. N o evidence for acute infarction. CEREBELLUM: No masses. No hemorrhage. No alteration of density. No evidence for acute infarction. EXTRAAXIAL SPACES: No fluid collections. No masses. ORBITS AND GLOBE: No intra- or extraconal masses. Normal contour of globe without masses. CALVARIUM: No fracture. PARANASAL SINUSES: No fluid or mucosal thickening. SOFT TISSUES: No mass or hematoma. OTHER: No other significant finding. IMPRESSION: NORMAL BRAIN CT WITHOUT CONTRAST. TECHNICAL DOCUMENTATION: JOB ID: [id number] Quality ID # [id number]: Final reports with documentation of one or more dose reduction techniques (e.g., Au tomated exposure control, adjustment of the mA and/or kV according to patient size, use of iterative reconstruction technique) 2010 [employer]- All Rights Reserved
== END 2017-04-16 06:08 | disposition home or self-care (01) ==
LOC: ER 23:18
DX: R51 Headache (principal); R20.2 Paresthesia of skin; R20.0 Anesthesia of skin; Z79.3 Long term (current) use of hormonal contraceptives
CPT/HCPCS: 99283; 96372; 70450; J1200; J2765

== ENCOUNTER 2018-05-27 19:29 | Emergency (ER) | payer SELFPAY ==
[2018-05-27 19:49] VITALS: BP 128/70
[2018-05-27] MEDS ORDERED: CIPROFLOXACIN HCL/DEXAMETH OTIC DROP 7.5 ML AS ONE (20:34)
--- NOTE | 2018-05-27 20:42 | ER Document Report ---
HPI - HPI Pain Level: 5 Notes: Patient is a 22-year-old female with no significant past medical history who presents to the ED complaining of left ear pain x3 days. Patient states that the pain does not radiate. Patient states that pushing on her ear makes the pain worse. She has not noticed any discharge. Denies any drug allergies. No other concerns or complaints. She is eating and drinking without any difficulties. No recent illness. Denies any headache, fever, head injury, neck pain, changes in vision/speech/mentation/hearing, URI, sore throat, chest pain, palpitations, syncope, cough, shortness of breath, wheeze, dyspnea, abdominal pain, nausea/vomiting/diarrhea, urinary retention, dysuria, hematuria , or rash. - ROS Systems Reviewed and Negative: Yes All other systems reviewed and negative - CONSTITUTIONAL Constitutional: DENIES: Fever - EENT EENT: REPORTS: Sore Throat, Ear Pain - REPRODUCTIVE Reproductive: DENIES: : Past Medical History - Social History Smoking Status: Never Smoker Chew tobacco use (# tins/day): No Drug Abuse: None Family History: DM, Hypertension, Malignancy Patient has suicidal ideation: No Patient has homicidal ideation: No Endocrine Medical History: Denies: Hx Diabetes Mellitus Type 1, Hx Diabetes Mellitus Type 2 Renal/ Medical History: Denies: Hx Peritoneal Dialysis - Immunizations Immunizations up to date: Yes Hx Diphtheria, Pertussis, Tetanus Vaccination: Yes Vertical Provider Document - CONSTITUTIONAL Agree With Documented VS: Yes Notes: PHYSICAL EXAMINATION: GENERAL: Well-appearing, well-nourished and in no acute distress. A&Ox4. Answers questions appropriately. Moves comfortably w/o notable distress HEAD: Atraumatic, normocephalic. EYES: Pupils equal round and reactive to light, extraocular movements intact, sclera anicteric, conjunctiva are normal. ENT: Rt EAC wnl. Lt EAC swollen and tender to palp of the tragus/EAC. TM's intact b/l without erythema, fluid, or perforation. No mastoid tenderness. Nares patent and without discharge. oropharynx no erythema without exudates. No tonsilar hypertrophy without erythema or exudate. No palatine shift. Uvula midline. No tongue protrusion. No drooling, hoarseness, or airway compromise. Moist mucous membranes. No sinus tenderness. NECK: Normal range of motion, supple without lymphadenopathy. No rigidity/ meningismus. LUNGS: Breath sounds clear to auscultation bilaterally and equal. No wheezes rales or rhonchi. No retractions HEART: Regular rate and rhythm without murmurs, rubs, gallops. NEUROLOGICAL: Normal speech, normal gait. Normal sensory, motor exams PSYCH: Normal mood, normal affect. SKIN: Warm, Dry, normal turgor, no rashes or lesions noted. - INFECTION CONTROL TRAVEL OUTSIDE OF THE [place] IN LAST 30 DAYS: No Course - Re-evaluation Re-evalutation: 05/27/18 20:43 Patient is an afebrile, well-hydrated, 22-year-old female who presents to the ED with acute otitis externa of the left ear. Vitals are acceptable without any significant tachycardia, tachypnea, or hypoxia. PE is otherwise unremarkable. Ear wick was placed successfully without any complications and Ciprodex was applied. Patient is nontoxic-appearing and is tolerating p.o. without any difficulties. No labs or imaging warranted at this time based on H& P. Low suspicion for any sepsis, meningitis, severe dehydration, respiratory compromise, mastoiditis, or other systemic emergent condition at this time. Patient is aware that condition can change from initial presentation and she needs to monitor symptoms closely and seek medical attention with any acute changes. Prescription for Ciprodex. Conservative measures for symptoms. Recheck with your PCM in 3-5 days. Consider consult with ENT. Return to the ED with any worsening/concerning symptoms otherwise as reviewed in discharge. Patient is in agreement. - Vital Signs Vital signs: Temp Pulse Resp BP Pulse Ox 97.9 F 108 H 18 128/70 H 99 05/27/18 19:44 05/27/18 19:44 05/27/18 19:44 05/27/18 19:44 05/27/18 19:44 Procedures - Additional Procedures Ear wick placement Time performed: 20:35 Additional Procedures: Other - Ear wick placed successfully without any complications. Patient tolerated procedure well. Discharge - Discharge Clinical Impression: Acute otitis externa of left ear Qualifiers: Otitis externa type: unspecified type Qualified Code(s): H60.502 - Unspecified acute noninfective otitis externa, left ear Condition: Stable Disposition: HOME, SELF-CARE Instructions: Using Ear Drops with a Wick ([facility]), Otitis Externa ([facility]) Additional Instructions: Maintain adequate fluid intake Take meds as directed tylenol/ibuprofen as needed Avoid Q-tips in the ears over the counter cold medication as needed for symptoms F/u: with your PCM in 3-5 days for a recheck Consider consult with ENT Return to the ED with any fever, dizziness, tinnitus, headaches, worsening pain , chest pain, palpitations, syncope, neck pain/stiffness, shortness of breath, wheezing, drooling, trouble swallowing/breathing, abdominal pain, n/v/d, rash, or worsening/concerning symptoms otherwise. Prescriptions: Ciprofloxacin HCl/Dexameth [Ciprodex Otic Suspension 7.5 ml Bottle] 4 drop OT BID #1 bottle Forms: Elevated Blood Pressure Referrals: DREW KITCHEN DO [ASSOCIATE] - Follow up as needed
== END 2018-05-27 20:54 | disposition home or self-care (01) ==
LOC: ER 19:29
DX: H60.502 Unspecified acute noninfective otitis externa, left ear (principal); H92.02 Otalgia, left ear; J02.9 Acute pharyngitis, unspecified
CPT/HCPCS: 99282; J3490

== ENCOUNTER → 2018-12-31 | Outpatient (CLI) | payer OTHER ==
--- NOTE | 2018-12-31 11:48 | WOMENS IMAGING REPORT ---
EXAM DESCRIPTION: U/S PELVIS NON-OB LIMITED COMPLETED DATE/TIME: 12/31/2018 11:00 am REASON FOR STUDY: Z30.431 ENCOUNTER FOR ROUTINE CHECKING OF INTRAUTERINE CONTRACEPTIVE DEVICE Z30.43 1 ENCOUNTER FOR ROUTINE CHECKING OF INTRAUTERINE CONTR COMPARISON: None. TECHNIQUE: Dynamic and static grayscale images acquired of the pelvis via transabdominal approach an d recorded on PACS. Additional selected color Doppler and spectral images recorded. LIMITATIONS: None. FINDINGS: UTERUS: Contour normal. No mass. ENDOMETRIAL STRIPE: IUD is located within the endometrial cavity. No focal or generalized thickenin g. No masses. CERVIX: No nabothian cysts. RIGHT OVARY AND DOPPLER: Normal size. No worrisome masses. Normal arterial vascular flow without evid ence for torsion. LEFT OVARY AND DOPPLER: Normal size. No worrisome masses. Normal arterial vascular flow without evide nce for torsion. FREE FLUID: None noted. OTHER: No other significant finding. MEASUREMENTS: UTERUS: 8.2 x 4.3 x 6.2 cm ENDOMETRIAL STRIPE: 12 mm RIGHT OVARY: 2.3 x 3.0 x 2.6 cm LEFT OVARY: 2.5 x 2.2 x 1.8 cm IMPRESSION: 1. IUD is located within the endometrial cavity. 2. Examination is otherwise unremarkable sonographically. TECHNICAL DOCUMENTATION: JOB ID: [id number] [employer]- All Rights Reserved Rev-01/11 Reading location - IP/workstation name: [email or web address]
== END ==
LOC: WI 10:20
PROVIDERS: ATTEND Midwife
DX: Z30.431 Encounter for routine checking of intrauterine contraceptive device (principal)
CPT/HCPCS: 76857

== ENCOUNTER 2019-02-27 17:13 | Emergency (ER) | payer OTHER ==
[2019-02-27 17:24] VITALS: BP 135/85
--- NOTE | 2019-02-27 17:50 | ER Document Report ---
HPI - HPI Patient complains to provider of: Great toe pain Time Seen by Provider: 02/27/19 17:32 Onset: Other Onset/Duration: Persistent Severity: Severe Pain Level: 4 Context: Patient presents to the emergency department with complaints of right great toe pain. Patient speaks primarily Russian Rachel used identification number [id number]. Patient reports that for 3 days her right great toe has been hurting. She reports she seen some pus coming out around the toenail which seems dark-colored and even the slightest touch hurts her toe. She reports that approximately 1 to 2 months ago she was seen by a restaurant service manager who cut out an ingrown toenail. When the toenail started growing in she believes it is growing in wrong and it starting to hurt again. She denies fever vomiting diarrhea. She has not followed up with [facility]. Associated Symptoms: None Exacerbated by: Movement, Walking, Other - touch Relieved by: Denies Similar symptoms previously: Yes Recently seen / treated by doctor: No - CONSTITUTIONAL Constitutional: DENIES: Fever, Chills - REPRODUCTIVE Reproductive: DENIES: : - MUSCULOSKELETAL Musculoskeletal: REPORTS: Extremity pain - right great toe Past Medical History - General Information source: Patient Last Menstrual Period: iud- 6 months ago - Social History Smoking Status: Never Smoker Chew tobacco use (# tins/day): No Frequency of alcohol use: None Drug Abuse: None Family History: DM, Hypertension, Malignancy Patient has suicidal ideation: No Patient has homicidal ideation: No - Medical History Medical History: Negative Endocrine Medical History: Denies: Hx Diabetes Mellitus Type 1, Hx Diabetes Mellitus Type 2 Renal/ Medical History: Denies: Hx Peritoneal Dialysis Surgical Hx: Negative - Immunizations Immunizations up to date: Yes Hx Diphtheria, Pertussis, Tetanus Vaccination: Yes Vertical Provider Document - CONSTITUTIONAL Agree With Documented VS: Yes Exam Limitations: No Limitations General Appearance: WD/WN, Mild Distress - tearful - INFECTION CONTROL TRAVEL OUTSIDE OF THE [place] IN LAST 30 DAYS: No - HEENT HEENT: Atraumatic, Normocephalic - NECK Neck: Supple - RESPIRATORY Respiratory: No Respiratory Distress - MUSCULOSKELETAL/EXTREMETIES Musculoskeletal/Extremeties: MAEW, FROM, Tender - right great toe ttp, no erythema, no swelling,no pustule. good cap refill, good pedal pulse - NEURO Level of Consciousness: Awake, Alert, Appropriate Motor/Sensory: No Motor Deficit - DERM Integumentary: Warm, Dry Course - Re-evaluation Re-evalutation: 02/27/19 17:55 Pt was instructed via RACHEL to wear good supporting shoes socks to protect her foot in her toe.. She was instructed to take Tylenol Motrin for the pain. She was instructed to contact [facility] in the morning. She does not read Spanish but the young boy by her side understand some Spanish in reports he does. Rachel also instructed patient on plan of care. She verbalized understanding. Dictation of this chart was performed using voice recognition software; therefore, there may be some unintended grammatical errors. - Vital Signs Vital signs: Temp Pulse Resp BP Pulse Ox 98.6 F 109 H 16 135/85 H 97 02/27/19 17:22 02/27/19 17:22 02/27/19 17:22 02/27/19 17:22 02/27/19 17:22 Discharge - Discharge Clinical Impression: Pain of right great toe Condition: Stable Disposition: HOME, SELF-CARE Instructions: Use of Xeia-Gqe-Hesdqxq Ibuprofen ([facility]) Additional Instructions: *You have been evaluated for right great toe pain *Protect your toe wear good supporting shoes wear socks *Follow up with [facility] tomorrow *Take tylenol or Motrin for pain *Return to ED for worsening condition, changes, needs Referrals: KIRSTIN BOLDEN CNM [NO LOCAL MD] - Follow up tomorrow Print Language: Russian
== END 2019-02-27 17:54 | disposition home or self-care (01) ==
LOC: ER 17:13
DX: Z97.5 Presence of (intrauterine) contraceptive device (principal)
CPT/HCPCS: 99283

== ENCOUNTER 2019-05-13 22:44 | Emergency (ER) | payer OTHER ==
[2019-05-14] MEDS ORDERED: NAPROXEN 250 MG TABLET PO ONE (00:09)
[2019-05-14 00:32] VITALS: BP 123/76
--- NOTE | 2019-05-14 07:14 | EKG REPORT ---
SEVERITY:- NORMAL ECG - SINUS RHYTHM : Confirmed by: Georgi Yee MD 14-May-2019 07:14:02
--- NOTE | 2019-05-16 09:19 | ER Document Report ---
Entered by LAURENCE MARTIN SCRIBE 05/14/19 0006 Acting as scribe for:DREW NORWOOD MD ED Extremity Problem, Upper - General Chief Complaint: Arm Pain Stated Complaint: LEFT ARM PAIN Time Seen by Provider: 05/13/19 23:27 Primary Care Provider: [facility] STEPHANIE,ALEXANDER [NO LOCAL MD] - Follow up in 3-5 days (If symptoms are not improving) Mode of Arrival: Ambulatory Information source: Patient Notes: Patient is a 23-year-old female who presents to the emergency department today with complaints of left shoulder pain. Patient states her pain is reproducible with movement. Patient states she has had no trauma or recent activity that she thinks could could have contributed to this left shoulder pain. 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 Patient complains of a headache but denies any chest pain, shortness of breath, or trauma to this area. TRAVEL OUTSIDE OF THE [place] IN LAST 30 DAYS: No - Related Data Allergies/Adverse Reactions: No Known Allergies Allergy (Verified 05/13/19 22:45) Past Medical History - General Information source: Patient - Social History Smoking Status: Never Smoker Cigarette use (# per day): No Frequency of alcohol use: None Drug Abuse: None Lives with: Family Family History: Reviewed & Not Pertinent, DM, Hypertension, Malignancy Patient has suicidal ideation: No Patient has homicidal ideation: No - Immunizations Immunizations up to date: Yes Hx Diphtheria, Pertussis, Tetanus Vaccination: Yes Review of Systems - Review of Systems Constitutional: No symptoms reported EENT: No symptoms reported Cardiovascular: No symptoms reported Respiratory: No symptoms reported Gastrointestinal: No symptoms reported Genitourinary: No symptoms reported Female Genitourinary: No symptoms reported Musculoskeletal: See HPI, Joint pain - left shoulder Skin: No symptoms reported Hematologic/Lymphatic: No symptoms reported Neurological/Psychological: See HPI, Headaches -: Yes All other systems reviewed and negative Physical Exam - Vital signs Vitals: Temp Pulse Resp BP Pulse Ox 97.7 F 88 18 130/74 H 97 05/13/19 22:54 05/13/19 22:54 05/13/19 22:54 05/13/19 22:54 05/13/19 22:54 - Notes Notes: Physical Exam: General: Alert, appears well. HEENT: Normocephalic. Atraumatic. PERRLA. Extraocular movements intact. Oropharynx clear. Neck: Supple. Respiratory: No respiratory distress. Abdominal: Normal Inspection. No distension. Extremities: Moves all four extremities. Reproducible left shoulder pain on palpation. Full range of motion with mild discomfort. Neurological: Normal cognition. AAOx4. Normal speech. Psychological: Normal affect. Normal Mood. Skin: Warm. Dry. Normal color. Course - Re-evaluation Re-evalutation: 05/14/19 00:07 Patient's pain is reproducible with movement suggestive of intrinsic shoulder pain. Will provide 5 days of anti-inflammatories. No crepitus erythema on exam. No signs of dislocation - Vital Signs Vital signs: Temp Pulse Resp BP Pulse Ox 97.8 F 84 17 123/76 99 05/14/19 00:29 05/14/19 00:29 05/14/19 00:29 05/14/19 00:29 05/14/19 00:29 - EKG Interpretation by Me EKG shows normal: Sinus rhythm Rate: Normal Rhythm: NSR - Normal axis and intervals no concerning ST depressions or elevati ons Discharge - Discharge Clinical Impression: Left shoulder pain Qualifiers: Chronicity: acute Qualified Code(s): M25.512 - Pain in left shoulder Condition: Good Disposition: HOME, SELF-CARE Instructions: Shoulder Injury ([facility]) Prescriptions: Naproxen 500 mg PO BID #10 tablet [facility] [NO LOCAL MD] - Follow up in 3-5 days (If symptoms are not improving) I personally performed the services described in the documentation, reviewed and edited the documentation which was dictated to the scribe in my presence, and it accurately records my words and actions.
== END 2019-05-14 00:28 | disposition home or self-care (01) ==
LOC: ER 22:44
DX: M25.512 Pain in left shoulder (principal); R51 Headache
CPT/HCPCS: 93005; 93010; 99283

== ENCOUNTER 2019-08-31 21:16 | Emergency (ER) | payer OTHER ==
[2019-08-31] MEDS ORDERED: IBUPROFEN 800 MG TABLET PO ONE (22:42)
--- NOTE | 2019-08-31 22:48 | ER Document Report ---
ED ENT - General Chief Complaint: Ear Pain Stated Complaint: RIGHT EAR PAIN Time Seen by Provider: 08/31/19 22:42 Primary Care Provider: [facility] [Provider Group] - Follow up as needed [facility] [Provider Group] - Follow up as needed [facility] [Provider Group] - Follow up as needed [facility] [Provider Group] - Follow up as needed Mode of Arrival: Ambulatory Information source: Patient Notes: 24-year-old female presented to ED for complaint of right ear pain x3 days. She is alert oriented respirations regular nonlabored speaking in full sentences. She has no other complaints. TRAVEL OUTSIDE OF THE [place] IN LAST 30 DAYS: No - HPI Patient complains to provider of: Ear problem Onset: Other - 3 days Onset/Duration: Gradual Quality of pain: Achy, Dull Severity: Moderate Pain Level: 4 Context: Recent Illness Location of pain: Ears Associated symptoms: Ear pain Similar symptoms previously: Yes Recently seen / treated by doctor: No - Related Data Allergies/Adverse Reactions: No Known Allergies Allergy (Verified 05/13/19 22:45) Past Medical History - General Information source: Patient - Social History Smoking Status: Never Smoker Frequency of alcohol use: None Drug Abuse: None Lives with: Family Family History: Reviewed & Not Pertinent, DM, Hypertension, Malignancy Patient has suicidal ideation: No Patient has homicidal ideation: No - Past Medical History Cardiac Medical History: Reports: None Pulmonary Medical History: Reports: None EENT Medical History: Reports: None Neurological Medical History: Reports: None Endocrine Medical History: Reports: None Renal/ Medical History: Reports: None Malignancy Medical History: Reports: None GI Medical History: Reports: None Musculoskeletal Medical History: Reports None Skin Medical History: Reports None Psychiatric Medical History: Reports: None Traumatic Medical History: Reports: None Infectious Medical History: Reports: None Surgical Hx: Negative Past Surgical History: Reports: None - Immunizations Immunizations up to date: Yes Hx Diphtheria, Pertussis, Tetanus Vaccination: Yes Review of Systems - Review of Systems Constitutional: No symptoms reported EENT: Ear pain - Right ear pain Cardiovascular: No symptoms reported Respiratory: No symptoms reported Gastrointestinal: No symptoms reported Genitourinary: No symptoms reported Female Genitourinary: No symptoms reported Musculoskeletal: No symptoms reported Skin: No symptoms reported Hematologic/Lymphatic: No symptoms reported Neurological/Psychological: No symptoms reported -: Yes All other systems reviewed and negative Physical Exam - Vital signs Vitals: Temp Pulse Resp BP Pulse Ox 98.6 F 98 20 146/82 H 97 08/31/19 21:25 08/31/19 21:25 08/31/19 21:25 08/31/19 21:25 08/31/19 21:25 Interpretation: Normal - General General appearance: Appears well, Alert - HEENT Head: Normocephalic, Atraumatic Eyes: Normal Pupils: PERRL Ears: Normal External canal: Normal Tympanic membrane: Normal Sinus: Normal Nasal: Purulent discharge, Swelling Mouth/Lips: Normal Mucous membranes: Normal Pharynx: Normal Neck: Normal - Respiratory Respiratory status: No respiratory distress Chest status: Nontender Breath sounds: Normal Chest palpation: Normal - Cardiovascular Rhythm: Regular Heart sounds: Normal auscultation Murmur: No - Abdominal Inspection: Normal Distension: No distension Bowel sounds: Normal Tenderness: Nontender Organomegaly: No organomegaly - Back Back: Normal, Nontender - Extremities General upper extremity: Normal inspection, Nontender, Normal color, Normal ROM, Normal temperature General lower extremity: Normal inspection, Nontender, Normal color, Normal ROM, Normal temperature, Normal weight bearing. No: Lj's sign - Neurological Neuro grossly intact: Yes Cognition: Normal Orientation: AAOx4 [place] Coma Scale Eye Opening: Spontaneous [place] Coma Scale Verbal: Oriented [place] Coma Scale Motor: Obeys Commands [place] Coma Scale Total: 15 Speech: Normal Motor strength normal: LUE, RUE, LLE, RLE Sensory: Normal - Psychological Associated symptoms: Normal affect, Normal mood - Skin Skin Temperature: Warm Skin Moisture: Dry Skin Color: Normal Course - Re-evaluation Re-evalutation: 09/01/19 00:18 After performing a Medical Screening Examination, I estimate there is LOW risk for ACUTE CORONARY SYNDROME, RESPIRATORY FAILURE, SEPSIS OR MENINGITIS, thus I consider the discharge disposition reasonable. I have reevaluated this patient multiple times and no significant life threatening changes are noted. The patient and I have discussed the diagnosis and risks, and we agree with discharging home with close follow-up. We also discussed returning to the Emergency Department immediately if new or worsening symptoms occur. We have discussed the symptoms which are most concerning (e.g., changing or worsening pain, trouble swallowing or breathing, neck stiffness, fever) that necessitate immediate return. - Vital Signs Vital signs: Temp Pulse Resp BP Pulse Ox 98.6 F 98 20 146/82 H 97 08/31/19 21:25 08/31/19 21:25 08/31/19 21:25 08/31/19 21:25 08/31/19 21:25 Discharge - Discharge Clinical Impression: Right ear pain URI (upper respiratory infection) Qualifiers: URI type: unspecified URI Qualified Code(s): J06.9 - Acute upper respiratory infection, unspecified Condition: Stable Disposition: HOME, SELF-CARE Additional Instructions: UPPER RESPIRATORY ILLNESS: You have a viral infection of the respiratory passages -- a "cold." This common infection causes nasal congestion, drainage, and often sore throat and cough. It is highly contagious. The disease usually lasts about 10 to 14 days. There is no "cure" for the viral infection -- it must run its course. If there is a complication, such as bacterial infection in the nose, sinuses, middle ear, or bronchial tubes, antibiotics may be required. The antibiotics won't affect the virus. Drink plenty of fluids. A humidifier may help. An expectorant medication or decongestant may make you more comfortable. Use acetaminophen or ibuprofen for fever or aches. See the doctor if fever persists over two days, if there is any significant worsening of your symptoms, or if you simply fail to improve as expected. You were recommended treatment with Claritin 10 mg Sudafed 30 mg and you have been taken Mucinex 600 mg. These are all iyqf-vdi-bmbixeo medications for cough cold congestion. You do need to call the go to the pharmacist to get the Sudafed from behind the counter please get a little red pills they are more effective. He could also use Flonase which is lfwe-lri-dpdrhom 1 spray each nostril twice a day. He could also use salt soda solution gargles. These will help to remove the drainage from the back your throat. Chloraseptic spray was uwzw-ucl-agbbkfu that will also help with your sore throat. Salt and soda solution gargle 1 quart of water 1 tablespoon of salt 1 teaspoon of baking soda Mixed 3 ingredients together and boil for 1 minute Placed in a covered quart jar Use 1/2 ounce of cold solution to gargle 3 times a day COUGH-SUPPRESSANT & EXPECTORANT MEDICATION: You are to use a cough medication as needed for relief of symptoms. This medicine is a combination of an expectorant (to make the mucous thinner and more easily "coughed up") and a cough suppressant (to reduce the frequency of coughing). The cough-suppressant medicine is related to narcotics. You may experience mild nausea and sleepiness. Some patients who are very sensitive to narcotics may have stomach pain from this medicine. Taking the medicine with food reduces these side effects. Do not drive or work with machinery until you know how this medicine affects you. The expectorant should have no side effects. Iodine-containing expectorants (such as organidin) should not be taken by persons with active thyroid disease unless approved by your doctor. Call the doctor if you develop shortness of breath, hives, rash, itching, lightheadedness, or severe nausea and vomiting. USE OF ACETAMINOPHEN (Tylenol): Acetaminophen may be taken for pain relief or fever control. It's much safer than aspirin, offering a wider range of "safe" dosages. It is safe during . Some brand names are Tylenol, Panadol, Datril, Anacin 3, Tempra, and Liquiprin. Acetaminophen can be repeated every four hours. The following are maximum recommended dosages: >89 pounds or adults 650 mg to 900 mg Acetaminophen can be repeated every four hours. Maximum dose not to exceed 4000 mg a day. FOLLOW-UP CARE: If you have been referred to a physician for follow-up care, call the physicians office for an appointment as you were instructed or within the next two days. If you experience worsening or a significant change in your symptoms, notify the physician immediately or return to the Emergency Department at any time for re-evaluation. Forms: Elevated Blood Pressure Referrals: [facility] [Provider Group] - Follow up as needed [facility] [Provider Group] - Follow up as needed [facility] [Provider Group] - Follow up as needed [facility] [Provider Group] - Follow up as needed
[2019-09-01 00:49] VITALS: BP 138/80
== END 2019-08-31 22:50 | disposition home or self-care (01) ==
LOC: ER 21:16
DX: J06.9 Acute upper respiratory infection, unspecified (principal); H92.01 Otalgia, right ear
CPT/HCPCS: 99282

== ENCOUNTER 2019-09-02 01:18 | Emergency (ER) | payer OTHER ==
[2019-09-02] MEDS ORDERED: CIPROFLOXACIN HCL/DEXAMETH OTIC DROP 7.5 ML AD ONE (03:33)
--- NOTE | 2019-09-02 03:35 | ER Document Report ---
ED General - General Chief Complaint: Sore Throat Stated Complaint: EAR PAIN Time Seen by Provider: 09/02/19 02:46 Primary Care Provider: HILARIO MARTINEZ MD [ACTIVE STAFF] - Follow up as needed Mode of Arrival: Ambulatory Information source: Patient TRAVEL OUTSIDE OF THE [place] IN LAST 30 DAYS: No - HPI Onset: Other - over the last 5 days Onset/Duration: Gradual Quality of pain: Pressure - in right ear, Throbbing Severity: Moderate Pain Level: 3 Associated symptoms: Earache, Sore throat Exacerbated by: Denies Relieved by: Denies Similar symptoms previously: No Recently seen / treated by doctor: No Notes: 24 year old female with no known PMH here for 5 days of right ear pain which seems to be worsening and 1-2 days of a sore throat. The patient denies fevers, chills, sweats, nausea, vomiting, productive cough. The patient denies recent swimming or recently having anything in her right ear. The patient denies recent sick contacts. - Related Data Allergies/Adverse Reactions: No Known Allergies Allergy (Verified 05/13/19 22:45) Past Medical History - General Information source: Patient - Social History Smoking Status: Never Smoker Frequency of alcohol use: None Drug Abuse: None Lives with: Family Family History: Reviewed & Not Pertinent, DM, Hypertension, Malignancy Patient has suicidal ideation: No Patient has homicidal ideation: No - Medical History Medical History: Negative - Immunizations Immunizations up to date: Yes Hx Diphtheria, Pertussis, Tetanus Vaccination: Yes Review of Systems - Review of Systems Constitutional: denies: Fever EENT: Ear pain, Throat pain Respiratory: denies: Cough -: Yes All other systems reviewed and negative Physical Exam - Vital signs Vitals: Temp Pulse Resp BP Pulse Ox 97.9 F 101 H 20 131/81 H 98 09/02/19 01:34 09/02/19 01:34 09/02/19 01:34 09/02/19 01:34 09/02/19 01:34 - Notes Notes: GENERAL: Well-appearing, well-nourished and in no acute distress. HEAD: Atraumatic, normocephalic. EYES: Pupils equal round and reactive to light, extraocular movements intact, sclera anicteric, conjunctiva are normal. ENT: Right Ear Canal swollen and inflamed with some scant discharge. Left Ear Canal normal and left TM normal. Nares patent, oropharynx clear without exudates. Moist mucous membranes. NECK: Normal range of motion, supple without lymphadenopathy or JVD. LUNGS: Breath sounds clear to auscultation bilaterally and equal. No wheezes rales or rhonchi. HEART: Regular rate and rhythm without murmurs, rubs or gallops. ABDOMEN: Soft, nontender, normoactive bowel sounds. No guarding, no rebound. No masses appreciated. EXTREMITIES: Normal range of motion, no pitting or edema. No clubbing or cyanosis. NEUROLOGICAL: Cranial nerves II through XII grossly intact. Normal speech, normal gait. PSYCH: Normal mood, normal affect. SKIN: Warm, Dry, normal turgor, no rashes or lesions noted. Course - Re-evaluation Re-evalutation: 09/02/19 03:46 The patient seems to have a right sided otitis externa on exam as her right ear canal is very swolle, inflamed and there is some scatn discharge. The patient's throat is not swollen, there is no exudate, and her rapid strep is negative. Will treat with Ciprodex ear drops and prescribe Naproxen for pain. Patient told to follow up with a PCP if symptoms persist. 09/02/19 03:51 09/02/19 03:51 - Vital Signs Vital signs: Temp Pulse Resp BP Pulse Ox 97.9 F 101 H 20 131/81 H 98 09/02/19 01:34 09/02/19 01:34 09/02/19 01:34 09/02/19 01:34 09/02/19 01:34 Discharge - Discharge Clinical Impression: Right ear pain Otitis externa Qualifiers: Otitis externa type: unspecified type Chronicity: acute Laterality: right Qualified Code(s): H60.501 - Unspecified acute noninfective otitis externa, right ear Condition: Stable Disposition: HOME, SELF-CARE Instructions: Otitis Externa ([facility]) Additional Instructions: Use Ciprodex Ear Drops (3 drops, 2 times daily) for your ear infection. Use Naproxen for pain along with over the counter tylenol. Follow up with your primary care doctor if symptoms persist. If you dont have a primary care doctor, one is listed in your paperwork. Prescriptions: Ciprofloxacin HCl [Ciloxan 0.3% Oph Soln 2.5 ml] 3 drop OP BID #1 bottle Ciprofloxacin HCl/Dexameth [Ciprodex Otic Suspension 7.5 ml Bottle] 3 drop OT BID #1 bottle Referrals: HILARIO MARTINEZ MD [ACTIVE STAFF] - Follow up as needed
[2019-09-02 04:14] VITALS: BP 126/85
== END 2019-09-02 04:14 | disposition home or self-care (01) ==
LOC: ER 01:18
DX: H60.501 Unspecified acute noninfective otitis externa, right ear (principal); H92.01 Otalgia, right ear; J02.9 Acute pharyngitis, unspecified
CPT/HCPCS: 99283; 87070; 87880; J3490

== ENCOUNTER 2020-01-23 22:58 | Emergency (ER) | payer SELFPAY ==
[2020-01-24 00:34] LABS: ABSOLUTE EOSINOPHILS # (AUTO) 0.2 10^3/uL (0.0-0.6); ABSOLUTE LYMPHOCYTES (AUTO) 3.6 10^3/uL (0.5-4.7); ABSOLUTE MONOCYTES (AUTO) 1.1 10^3/uL (0.1-1.4); ABSOLUTE NEUT (AUTO) 7.5 10^3/uL (1.7-8.2); BASOPHILS % (AUTO) 0.4 % (0-2); EOSINOPHILS % (AUTO) 1.7 % (0-6); HEMATOCRIT 40.5 % (36.0-47.0); HEMOGLOBIN 13.8 g/dL (12.0-15.5); MEAN CORPUSCULAR HEMOGLOBIN 29.7 pg (27.0-33.4); MEAN CORPUSCULAR HGB CONC 34.1 g/dL (32.0-36.0); MEAN CORPUSCULAR VOLUME 87 fl (80-97); MONOCYTES % (AUTO) 8.9 % (3-13); PLATELET COUNT 302 10^3/uL (150-450); RED BLOOD COUNT 4.66 10^6/uL (3.72-5.28); RED CELL DISTRIBUTION WIDTH 13.9 % (11.5-14.0); TOTAL CELLS COUNTED % (AUTO) 100 %; WHITE BLOOD COUNT 12.5 10^3/uL (4.0-10.5)
[2020-01-24 00:43] LABS: APPEARANCE,URINE CLEAR; BILIRUBIN,URINE NEGATIVE (NEGATIVE); COLOR,URINE STRAW; GLUCOSE, URINE NEGATIVE (NEGATIVE); KETONES,URINE NEGATIVE (NEGATIVE); LEUKOCYTE ESTERASE,URINE NEGATIVE (NEGATIVE); NITRITE,URINE NEGATIVE (NEGATIVE); PROTEIN,URINE NEGATIVE (NEGATIVE); URINE SPECIFIC GRAVITY 1.008; UROBILINOGEN,URINE NEGATIVE mg/dL (<2.0)
[2020-01-24 01:16] LABS: ALKALINE PHOSPHATASE 130 U/L (38-126); ANION GAP 8 (5-19); ASPARTATE AMINO TRANSFERASE 24 U/L (14-36); BILIRUBIN,TOTAL 0.2 mg/dL (0.2-1.3); BLOOD UREA NITROGEN 15 mg/dL (7-20); CARBON DIOXIDE 24 mmol/L (22-30); CHLORIDE 107 mmol/L (98-107); GLUCOSE 89 mg/dL (75-110); POTASSIUM 4.5 mmol/L (3.6-5.0); TOTAL PROTEIN 7.4 g/dL (6.3-8.2)
[2020-01-24] MEDS ORDERED: ONDANSETRON 4 MG TAB.RAPDIS PO ONE (01:42)
--- NOTE | 2020-01-24 01:43 | ER Document Report ---
ED GI/ - General Chief Complaint: Abdominal Pain Stated Complaint: ABDOMINAL PAIN NAUSEA Time Seen by Provider: 01/24/20 01:39 Notes: CHIEF COMPLAINT: Upper abdominal pain and nausea after eating tonight at 9 PM HPI: 24-year-old obese female presenting for evaluation of upper abdominal discomfort with nausea after eating sushi at 9 PM. Patient describes the discomfort across the upper abdomen but more focal in the left upper qu adrant. Has had nausea no vomiting. No diarrhea. No fever. [place] fine prior to eating ROS: See HPI - all other systems were reviewed and are otherwise negative Constitutional: no fever Eyes: no drainage, no blurred vision ENT: no runny nose, no sore throat Cardiovascular: no chest pain Resp: no SOB, no cough GI: no vomiting, no diarrhea, + abdominal pain, positive nausea : no dysuria Integumentary: no rash Allergy: no hives Musculoskeletal: no extremity pain or swelling Neurological: no numbness/tingling, no weakness MEDICATIONS: I agree with the patient medications as charted by the RN. ALLERGIES: I agree with the allergies as charted by the RN. PAST MEDICAL HISTORY/PAST SURGICAL HISTORY: Reviewed and agree as charted by RN. SOCIAL HISTORY: Reviewed and agree as charted by RN. FAMILY HISTORY: No significant familial comorbid conditions directly related to patient complaint EXAM: Reviewed vital signs as charted by RN. CONSTITUTIONAL: Alert and oriented and responds appropriately to questions. Well-appearing; well-nourished HEAD: Normocephalic; atraumatic EYES: PERRL; Conjunctivae clear, sclerae non-icteric ENT: normal nose; no rhinorrhea; moist mucous membranes; pharynx without lesions noted, no uvula edema or deviation, no tonsillar hypertrophy, phonation normal NECK: Supple without meningismus; non-tender; no cervical lymphadenopathy, no masses CARD: RRR; no murmurs, no clicks, no rubs, no gallops; symmetric distal pulses RESP: Normal chest excursion without splinting or tachypnea; breath sounds clear and equal bilaterally; no wheezes, no rhonchi, no rales, pulse oximetry 99% on room air not hypoxic ABD/GI: Obese, normal bowel sounds; non-distended; soft, mild tenderness in the right upper quadrant, mild tenderness in the epigastric region. Moderate tenderness left upper quadrant on palpation, no rebound, no guarding; no palpable organomegaly or masses. BACK: The back appears normal and is non-tender to palpation, there is no CVA tenderness EXT: Normal ROM in all joints; non-tender to palpation; no cyanosis, no effusions, no edema SKIN: Normal color for age and race; warm; dry; good turgor; no acute lesions noted NEURO: Moves all extremities equally; Motor and sensory function intact PSYCH: The patient's mood and manner are appropriate. Grooming and personal hygiene are appropriate. MDM: 24-year-old female with upper abdominal discomfort more focal in the epigastric left upper quadrant region after eating tonight. Initial screening labs do not show any significant abnormalities other than a mild leukocytosis of 12.5. Will obtain ultrasound to evaluate for possible cholelithiasis. TRAVEL OUTSIDE OF THE [place] IN LAST 30 DAYS: No - Related Data Allergies/Adverse Reactions: No Known Allergies Allergy (Verified 05/13/19 22:45) Past Medical History - Social History Smoking Status: Never Smoker Family History: Reviewed & Not Pertinent, DM, Hypertension, Malignancy Patient has homicidal ideation: No - Immunizations Immunizations up to date: Yes Hx Diphtheria, Pertussis, Tetanus Vaccination: Yes Physical Exam - Vital signs Vitals: Temp Pulse Resp BP Pulse Ox 98.6 F 98 18 145/85 H 98 01/23/20 23:03 01/23/20 23:03 01/23/20 23:03 01/23/20 23:03 01/23/20 23:03 Course - Re-evaluation Re-evalutation: 01/24/20 03:17 Ultrasound does not show evidence of cholelithiasis or other significant abnormalities. Eating more likely gastric or gastritis in nature. Will give GI cocktail. Anticipate discharge home as lab work does not show significant abnormalities to follow-up closely with gastroenterology. - Vital Signs Vital signs: Temp Pulse Resp BP Pulse Ox 98.0 F 84 14 138/86 H 99 01/24/20 01:30 01/24/20 01:30 01/24/20 01:30 01/24/20 01:30 01/24/20 01:30 - Laboratory Result Diagrams: 01/23/20 00:09 01/23/20 00:09 Laboratory results interpreted by me: 01/23/20 01/23/20 00:09 00:09 WBC 12.5 H Alkaline Phosphatase 130 H Discharge - Discharge Clinical Impression: Abdominal pain, epigastric Condition: Stable Disposition: HOME, SELF-CARE Additional Instructions: Your ultrasound today did not show evidence of a significant abnormality in your gallbladder. There were no gallstones noted. Your lab work did not show significant acute abnormalities. This is more likely gastritis given the recent onset of your pain after eating. You are being referred to a j2ee consultant for further evaluation call for appointment. Take the medications for nausea and discomfort as prescribed, return if you develop fever greater than 101, recurrent vomiting or fever greater than 101 Toribio ultrasonido de hoy no mostr evidencia de shawn anormalidad significativa en toribio vescula biliar. No se observaron clculos biliares. Toribio trabajo de laboratorio no mostr anormalidades agudas significativas. [place] es ms probable gastritis joselo la aparicin reciente de toribio dolor despus de comer. Lo estn derivando a un gastroenterlogo para shawn evaluacin adicional, llame para hacer shawn bethany. [place] los medicamentos para las nuseas y las molestias segn lo prescrito, regrese si presenta fiebre mayor de 101, vmitos recurrentes o fiebre mayor de 101 Prescriptions: Pantoprazole Sodium [Protonix [address] Tablet] 20 mg PO DAILY #30 tablet. Ondansetron [Zofran Odt 4 mg Tablet] 1 - 2 tab PO Q4H PRN #15 tab.rapdis PRN Reason: For Nausea/Vomiting Referrals: HAILEE VEGA MD [ACTIVE STAFF] - Follow up as needed
--- NOTE | 2020-01-24 03:08 | RADIOLOGY REPORT (SQ) ---
EXAM DESCRIPTION: US ABDOMEN LIMITED COMPLETED DATE/TME: 01/24/2020 01:42 CLINICAL HISTORY: 24 years, Female, upper abd pain COMPARISON: 10/12/2016 abdomen TECHNIQUE: Limited right upper quadrant abdomen LIMITATIONS: None. FINDINGS: Echogenic appearance to the liver consistent with fatty infiltrative change. No gallstones or gallbladder wall thickening. The CBD measures 1.9 mm. The visualized pancreas, abdominal aorta, inferior vena cava, right kidney unremarkable. No ascites IMPRESSION: Fatty infiltrative change to the liver. Remainder unremarkable copyright 2010 [employer]- All Rights Reserved
[2020-01-24] MEDS ORDERED: LIDOCAINE 2% VISCOUS SOLN 15 ML UDCUP PO ONE (03:17)
[2020-01-24] MEDS ORDERED: MAG HYDROX/AL HYDROX/SIMETH SUSP 30 ML UDCUP PO ONE (03:17)
[2020-01-24 03:38] VITALS: BP 133/94
== END 2020-01-24 03:38 | disposition home or self-care (01) ==
LOC: ER 22:58
DX: R10.13 Epigastric pain (principal); R10.811 Right upper quadrant abdominal tenderness; R10.816 Epigastric abdominal tenderness; R10.812 Left upper quadrant abdominal tenderness; D72.829 Elevated white blood cell count, unspecified; R11.0 Nausea
CPT/HCPCS: 99284; 36415; 83690; 85025; 81025; 80053; 81001; 76705; S0119; J3490

== ENCOUNTER 2020-06-15 09:08 | Emergency (ER) | payer SELFPAY ==
--- NOTE | 2020-06-15 10:32 | ER Document Report ---
ED Medical Screen (RME) - General Chief Complaint: Arm Pain Stated Complaint: ARM PAIN Time Seen by Provider: 06/15/20 10:26 TRAVEL OUTSIDE OF THE [place] IN LAST 30 DAYS: No - HPI Notes: 06/15/20 10:30 24-year-old female who is German-speaking only presents emergency room today with complaints of left arm pain that radiates to her upper back and radiates to her chest for the last 5 days, comes and goes and is getting worse with each day. Patient denies any trauma recent fall. Reports her last menstrual cycle was April 02, 2020, she does have an IUD. Denies any prior history of any heart attacks. Patient has not tried any [id number] medication. I have greeted and performed a rapid initial assessment of this patient. A comprehensive ED assessment and evaluation of the patient, analysis of test results and completion of the medical decision making process will be conducted by additional ED providers. PHYSICAL EXAMINATION: GENERAL: Well-appearing, well-nourished and in no acute distress. CV: s1, s2 regular LUNGS: No respiratory distress - Related Data Allergies/Adverse Reactions: No Known Allergies Allergy (Verified 06/15/20 10:26) Past Medical History - Immunizations Immunizations up to date: Yes Hx Diphtheria, Pertussis, Tetanus Vaccination: Yes Physical Exam - Vital signs Vitals: Temp Pulse Resp BP Pulse Ox 97.8 F 88 16 126/64 H 97 06/15/20 09:58 06/15/20 09:58 06/15/20 09:58 06/15/20 09:58 06/15/20 09:58 Course - Vital Signs Vital signs: Temp Pulse Resp BP Pulse Ox 97.8 F 88 16 126/64 H 97 06/15/20 09:58 06/15/20 09:58 06/15/20 09:58 06/15/20 09:58 06/15/20 09:58
[2020-06-15 11:21] LABS: ABSOLUTE EOSINOPHILS # (AUTO) 0.2 10^3/uL (0.0-0.6); ABSOLUTE LYMPHOCYTES (AUTO) 2.9 10^3/uL (0.5-4.7); ABSOLUTE MONOCYTES (AUTO) 0.7 10^3/uL (0.1-1.4); ABSOLUTE NEUT (AUTO) 6.9 10^3/uL (1.7-8.2); BASOPHILS % (AUTO) 0.3 % (0-2); EOSINOPHILS % (AUTO) 2.1 % (0-6); HEMATOCRIT 41.4 % (36.0-47.0); HEMOGLOBIN 13.9 g/dL (12.0-15.5); LYMPHOCYTES % (AUTO) 27.3 % (13-45); MEAN CORPUSCULAR HEMOGLOBIN 29.5 pg (27.0-33.4); MEAN CORPUSCULAR HGB CONC 33.6 g/dL (32.0-36.0); MEAN CORPUSCULAR VOLUME 88 fl (80-97); MONOCYTES % (AUTO) 6.1 % (3-13); PLATELET COUNT 301 10^3/uL (150-450); RED BLOOD COUNT 4.71 10^6/uL (3.72-5.28); RED CELL DISTRIBUTION WIDTH 13.3 % (11.5-14.0); SEGMENTED NEUTROPHILS % (AUTO) 64.2 % (42-78); TOTAL CELLS COUNTED % (AUTO) 100 %; WHITE BLOOD COUNT 10.7 10^3/uL (4.0-10.5)
[2020-06-15 11:22] LABS: APPEARANCE,URINE CLEAR; BILIRUBIN,URINE NEGATIVE (NEGATIVE); COLOR,URINE YELLOW; GLUCOSE, URINE NEGATIVE (NEGATIVE); KETONES,URINE NEGATIVE (NEGATIVE); LEUKOCYTE ESTERASE,URINE NEGATIVE (NEGATIVE); NITRITE,URINE NEGATIVE (NEGATIVE); PROTEIN,URINE NEGATIVE (NEGATIVE); URINE SPECIFIC GRAVITY 1.027; UROBILINOGEN,URINE NEGATIVE mg/dL (<2.0)
[2020-06-15 11:37] LABS: ALKALINE PHOSPHATASE 130 U/L (38-126); ANION GAP 9 (5-19); ASPARTATE AMINO TRANSFERASE 20 U/L (14-36); BILIRUBIN,DIRECT 0.2 mg/dL (0.0-0.4); BILIRUBIN,TOTAL 0.5 mg/dL (0.2-1.3); BLOOD UREA NITROGEN 15 mg/dL (7-20); CALCIUM 9.2 mg/dL (8.4-10.2); CARBON DIOXIDE 23 mmol/L (22-30); CHLORIDE 108 mmol/L (98-107); CREATINE KINASE 39 U/L (30-135); GLUCOSE 99 mg/dL (75-110); POTASSIUM 4.4 mmol/L (3.6-5.0); TOTAL PROTEIN 7.2 g/dL (6.3-8.2)
--- NOTE | 2020-06-15 11:37 | RADIOLOGY REPORT (SQ) ---
EXAM DESCRIPTION: CHEST 2 VIEWS IMAGES COMPLETED DATE/TIME: 06/15/2020 11:29 am REASON FOR STUDY: left sided chest pain x 5d COMPARISON: None. EXAM PARAMETERS: NUMBER OF VIEWS: two views TECHNIQUE: Digital Frontal and Lateral radiographic views of the chest acquired. RADIATION DOSE: NA LIMITATIONS: none FINDINGS: LUNGS AND PLEURA: No opacities, masses or pneumothorax. No pleural effusion. MEDIASTINUM AND HILAR STRUCTURES: No masses or contour abnormalities. HEART AND VASCULAR STRUCTURES: Heart normal size. No evidence for failure. BONES: No acute findings. HARDWARE: None in the chest. OTHER: No other significant finding. IMPRESSION: NO ACUTE RADIOGRAPHIC FINDING IN THE CHEST. TECHNICAL DOCUMENTATION: JOB ID: [id number] 2010 [employer]- All Rights Reserved Reading location - IP/workstation name: [email or web address]
[2020-06-15 11:49] LABS: CREATINE KINASE MB 0.29 ng/mL (<4.55)
[2020-06-15 11:51] LABS: TROPONIN I < 0.012 ng/mL
--- NOTE | 2020-06-15 14:23 | ER Document Report ---
ED General - General Chief Complaint: Chest Pain Stated Complaint: ARM PAIN Time Seen by Provider: 06/15/20 10:26 TRAVEL OUTSIDE OF THE [place] IN LAST 30 DAYS: No - HPI Notes: Patient is a 24-year-old, Romanian-speaking female, who presents to the emergency department for evaluation of pain in the left side of her chest. She states it started on Sunday. Its been present constantly since then, although it waxes and wanes. She states that the pain is sharp. It is in her shoulder, anterior chest, and her back. She states that her fingers feel cold. She tried some Advil without any significant relief. She denies any associated shortness of breath, diaphoresis, near syncope. She states occasionally she is nauseated, but has not had any vomiting. She denies any injury to the area. She states t hat sometimes it feels like it is heavy to move the area. She denies any other numbness or tingling, no heaviness in any other area of the body. She is seeing, speaking, swallowing without difficulty. - Related Data Allergies/Adverse Reactions: No Known Allergies Allergy (Verified 06/15/20 10:26) Home Medications: None Past Medical History - General Information source: Patient - Social History Smoking Status: Never Smoker Chew tobacco use (# tins/day): No Frequency of alcohol use: None Drug Abuse: None Family History: Reviewed & Not Pertinent, DM, Hypertension, Malignancy Patient has homicidal ideation: No GI Medical History: Reports: Other - Cholelithiasis Past Surgical History: Reports: None - Immunizations Immunizations up to date: Yes Hx Diphtheria, Pertussis, Tetanus Vaccination: Yes Review of Systems - Review of Systems Constitutional: No symptoms reported EENT: No symptoms reported Cardiovascular: See HPI Respiratory: No symptoms reported Gastrointestinal: See HPI Genitourinary: No symptoms reported Musculoskeletal: See HPI Skin: No symptoms reported Neurological/Psychological: No symptoms reported Physical Exam - Vital signs Vitals: Temp Pulse Resp BP Pulse Ox 97.8 F 88 16 126/64 H 97 06/15/20 09:58 06/15/20 09:58 06/15/20 09:58 06/15/20 09:58 06/15/20 09:58 - Notes Notes: Vital signs reviewed, please refer to chart. Head is normocephalic, atraumatic. Pupils equal round, reactive to light. Neck is supple without meningismus. Heart is regular rate and rhythm. Lungs are clear to auscultation bilaterally. Abdomen is soft, nontender, normoactive bowel sounds throughout. Extremities without cyanosis, clubbing. Posterior calves are nontender. Peripheral pulses are equal. Skin is warm and dry. Patient is awake, alert, neurological exam is nonfocal. Examination of the left upper extremity is no obvious deformity. She has full range of motion of the shoulder, elbow, wrist, fingers, thumb. Patient has marked tenderness palpation of the left trapezius, left anterior pectoralis muscles, and the posterior shoulder girdle. She is plus 5 out of 5 strength throughout the left upper extremity. Radial pulse 2+, capillary refill is brisk, sensation is intact. Course - Re-evaluation Re-evalutation: 06/15/20 14:26 Patient is a 24-year-old female who presents to the emergency department for evaluation of chest pain. Her pain actually seems to be to the entire upper thoracic spine, anterior chest, shoulder, left upper extremity. Her pain is reproducible. She is neurovascularly intact to left upper extremity. I believe this is all musculoskeletal pain. She had a work-up here which is unremarkable, including negative chest x-ray, negative x-ray, negative cardiac enzymes. Patient will be treated with anti-inflammatories and muscle relaxers. She is to follow-up closely with primary care. She is to return to the emergency department worsening or new concerning symptoms of any sort. - Vital Signs Vital signs: Temp Pulse Resp BP Pulse Ox 97.8 F 88 16 126/64 H 97 06/15/20 10:26 06/15/20 09:58 06/15/20 09:58 06/15/20 09:58 06/15/20 09:58 - Laboratory Result Diagrams: 06/15/20 10:54 06/15/20 10:54 Laboratory results interpreted by me: 06/15/20 06/15/20 10:54 10:54 WBC 10.7 H Chloride 108 H Alkaline Phosphatase 130 H - Diagnostic Test Radiology reviewed: Reports reviewed Radiology results interpreted by me: 06/15/20 14:26 Chest X-Ray 06/15/20 10:29 IMPRESSION: NO ACUTE RADIOGRAPHIC FINDING IN THE CHEST. - EKG Interpretation by Me Additional EKG results interpreted by me: 06/15/20 14:26 Sinus mechanism with a rate of 81 bpm. Normal axis and intervals. No acute ST changes concerning for ischemia or infarction. No old studies available for comparison. Discharge - Discharge Clinical Impression: Chest wall pain Shoulder pain Qualifiers: Chronicity: acute Laterality: left Qualified Code(s): M25.512 - Pain in left shoulder Condition: Stable Disposition: HOME, SELF-CARE Instructions: Chest Wall Pain ([facility]) Additional Instructions: Moist heat and gentle stretching of the painful areas. Take medications as prescribed. Please watch for dizziness and drowsiness with the muscle relaxers. Follow-up with your primary care provider next week. Return to the emergency department with worsening or new concerning symptoms of any sort. Prescriptions: Naproxen [Naprosyn] 500 mg PO BID #20 tablet Methocarbamol [Robaxin-750] 750 mg PO TID PRN #21 tablet PRN Reason:
[2020-06-15 15:09] VITALS: BP 139/94
--- NOTE | 2020-06-15 21:16 | EKG REPORT ---
SEVERITY:- NORMAL ECG - INCOMPLETE ANALYSIS DUE TO MISSING DATA IN PRECORDIAL LEAD(S) SINUS RHYTHM : Confirmed by: Antonino Laws MD 15-Jun-2020 21:15:47
== END 2020-06-15 15:11 | disposition home or self-care (01) ==
LOC: ER 09:08
DX: M25.512 Pain in left shoulder (principal); R07.89 Other chest pain; M54.6 Pain in thoracic spine
CPT/HCPCS: 36415; 71046; 80053; 81001; 81025; 82550; 82553; 84484; 85025; 93005; 93010; 99285